=== PATIENT | male | born 1945 | race Asian ===

== ENCOUNTER 2016-12-07 14:56 | Inpatient (IN) | payer OTHER ==
[2016-12-07] MEDS ORDERED: VANCOMYCIN 1,000 MG in DEXTROSE 5%-WATER - 250 ML IVPB ONE (18:09)
[2016-12-07] MEDS ORDERED: PIPERACILLIN/TAZOB 3.375 GM/50 ML PRE-DOCKED IV ONE (18:10)
[2016-12-07] MEDS ORDERED: SODIUM CHLORIDE 1,000 ML IV STA (18:10)
--- NOTE | 2016-12-07 18:12 | PDOC ---
History of Present Illness - General Chief Complaint: Pain, Acute Stated Complaint: LT FOOT PAIN/FEVER Time Seen by Provider: 12/07/16 17:48 History Source: Patient - History of Present Illness Occurred: reports: other Severity: Yes: severe Lower Extremity Pain Location: left: 1st toe Past History - Past Medical History Allergies/Adverse Reactions: Allergies Allergy/AdvReac Type Severity Reaction Status Date / Time No Known Allergies Allergy Verified 12/07/16 15:10 Home Medications: Ambulatory Orders Allopurinol [Zyloprim -] 100 mg PO DAILY 10/26/13 Gabapentin 100 mg PO TID 10/26/13 Oxycodone HCl/Acetaminophen [Percocet 5-325 mg Tablet] 1 - 2 tab PO Q6H PRN #12 tab MDD 4 11/16/15 Prednisone 10 mg PO DAILY #40 tablet 12/10/16 Anemia: Yes Asthma: No Cancer: No Cardiac Disorders: No CVA: No COPD: No CHF: No Dementia: No Diabetes: No GI Disorders: Yes (H.PYLORI GI TRACT INFECTION,ESOPHAGITIS,DIAPHRAGMATIC HERNIA, EARLY SATIETY,) Disorders: No HTN: No Hypercholesterolemia: Yes Liver Disease: No Seizures: No Thyroid Disease: No Other medical history: GOUT - Surgical History Abdominal Surgery: No Appendectomy: No Cardiac Surgery: No Cholecystectomy: No Lung Surgery: No Neurologic Surgery: No Orthopedic Surgery: No - Suicide/Smoking/Psychosocial Hx Smoking Status: No Smoking History: Never smoked Have you smoked in the past 12 months: No Number of Cigarettes Smoked Daily: 0 Hx Alcohol Use: No Drug/Substance Use Hx: No Substance Use Type: None Hx Substance Use Treatment: No Review of Systems - Review of Systems Constitutional: Yes: Fever Musculoskeletal: Yes: Joint Pain, Joint Swelling *Physical Exam - Vital Signs Last Vital Signs Temp Pulse Resp BP Pulse Ox 103.1 F H 105 H 19 131/81 96 12/07/16 15:10 12/07/16 15:10 12/07/16 15:10 12/07/16 15:10 12/07/16 15:10 - Physical Exam General Appearance: Yes: Appropriately Dressed, Mild Distress HEENT: positive: Normal Voice Neck: positive: Supple Respiratory/Chest: negative: Respiratory Distress Extremity: positive: Other (significant swelling to L 1st MTP w/ erythema extending into foot w/ increased warmth to entire foot/leg, pedal pusles intact) Integumentary: positive: Dry, Warm Neurologic: positive: Fully Oriented, Alert, Normal Mood/Affect ED Treatment Course - LABORATORY CBC & Chemistry Diagram: 12/10/16 06:30 12/10/16 06:30 - RADIOLOGY Radiology Studies Ordered: Category Date Time Status FOOT-LEFT [RAD] Stat Radiology 12/07/16 18:11 Ordered Medical Decision Making - Medical Decision Making 12/07/16 18:12 71-year-old male history of gout mostly to left great toe, on allopurinol, here with severe pain with redness and swelling to left great toe 3 days associated with fever. Denies history of septic joint in the past. See exam Concern for septic joint vs osteo Febrile to 103 F w/ significant swelling w/ erythema of L 1st MTP joint extending into foot w/ increased warmth to entire L foot/leg -pain control -IV abx -XR -labs including esr and crp -arrange admission w/ PMD 12/07/16 18:17 12/07/16 18:18 12/07/16 18:33 Case d/w Dr Narvaez, states pt to be admitted to Dr Hamm 12/07/16 18:34 12/07/16 18:54 Signed out to JESSICA Partida a/w labs and admission *DC/Admit/Observation/Transfer Diagnosis at time of Disposition: Sepsis - Discharge Dispostion Disposition: HOME Condition at time of disposition: Improved - Prescriptions
[2016-12-07] MEDS ORDERED: morphine CARPU-JECT 2 MG/1 ML DISP.SYRIN ONE (18:39)
[2016-12-07] MEDS ORDERED: ACETAMINOPHEN 325 MG TABLET (FP) PO ONE (18:39)
[2016-12-07] MEDS ORDERED: ACETAMINOPHEN 325 MG TABLET (FP) ONE (18:39)
[2016-12-07] MEDS ORDERED: morphine CARPU-JECT 4 MG/1 ML DISP.SYRIN IVPUSH ONE (18:39)
[2016-12-07 19:17] LABS: BASOPHIL 0.9 % (0-2.0); EOSINOPHIL 0.5 % (0-4.5); MCH 29.2 pg (25.7-33.7); MCHC 33.1 g/dl (32.0-35.9); MEAN CELL VOLUME 88.2 fl (80-96); NEUTROPHILS 72.4 % (42.8-82.8); PLATELET COUNT 214 K/MM3 (134-434); RDW 13.6 % (11.9-15.9); WHITE BLOOD COUNT 9.3 K/mm3 (4.0-10.0)
--- NOTE | 2016-12-07 19:18 | PDOC ---
*Physical Exam - Vital Signs Last Vital Signs Temp Pulse Resp BP Pulse Ox 103.1 F H 105 H 19 131/81 96 12/07/16 15:10 12/07/16 15:10 12/07/16 15:10 12/07/16 15:10 12/07/16 15:10 - Physical Exam Comments: 12/07/16 19:18 Sign-out received from outgoing ER provider Yunior. Pt interviewed and examined. Briefly, patient is a 71 yo M with hx of gout, h. pylori, and esophagitis, who presents to ED with redness, pain, and swelling to L great toe. Patient VS notable for temp of 103.1 and HR 105. Patient has received Vanc, Zosyn. Ancillary studies reviewed. Awaiting labs, foot XR. 12/07/16 20:39 Laboratory Tests 12/07/16 12/07/16 12/07/16 19:01 19:01 20:20 BUN 21 H D Creatinine 2.0 H Lactic Acid 4.1 H* C-Reactive Protein 10.4 H Still awaiting Foot x-ray. Patient hypotensive to 80s/40s. -2L IVF, Clindamycin -PT/PTT/INR, VBG, T&S -Repeat lactate -EKG, CXR Still awaiting urine. CXR negative, foot x-ray positive for osteoarthritic changes but negative for osteomyelitis. Soft tissue swelling. 12/07/16 22:18 Discussed case with JESSICA Gallardo of ICU, patient will be transferred to ICU for sepsis, r/o cellulitis vs UTI over dorsal aspect of foot. ED Treatment Course - LABORATORY CBC & Chemistry Diagram: 12/07/16 19:01 12/07/16 19:01 - Medications Given in the ED: ED Medications Discontinued Medications Generic Name Dose Route Start Last Admin Trade Name Freq PRN Reason Stop Dose Admin Acetaminophen 650 mg 12/07/16 18:39 12/07/16 18:35 Tylenol - PO 12/07/16 18:40 650 mg ONCE ONE Administration Sodium Chloride 1,000 mls @ 1,000 mls/hr 12/07/16 18:10 12/07/16 18:50 Normal Saline - IV 12/07/16 19:09 1,000 mls/hr ASDIR STA Administration Morphine Sulfate 2 mg 12/07/16 18:39 12/07/16 18:45 Morphine Injection - IVPUSH 12/07/16 18:40 2 mg ONCE ONE Administration *DC/Admit/Observation/Transfer Diagnosis at time of Disposition: Sepsis Qualifiers: Sepsis type: sepsis due to unspecified organism Qualified Code(s): A41.9 - Sepsis, unspecified organism - Discharge Dispostion Admit: Yes - Referrals Referrals: Iva Hamm MD [Primary Care Provider] -
[2016-12-07] MEDS ORDERED: VANCOMYCIN 1 GRAM (PRE-DOCKED) 250 ML IVPB ONE (19:21)
[2016-12-07] MEDS ORDERED: PIPERACILLIN/TAZOB 3.375 GM 50 ML IVPB ONE (19:22)
[2016-12-07 20:31] LABS: ALBUMIN 3.4 g/dl (3.4-5.0); ALK PHOS 62 U/L (45-117); ANION GAP 8 (8-16); BILIRUBIN,TOTAL 0.9 mg/dL (0.2-1.0); CALCIUM 8.9 mg/dL (8.5-10.1); CO2 23 mmol/L (21-32); GLUCOSE,RANDOM 95 mg/dL (74-106); SGOT/AST 13 U/L (15-37); SGPT/ALT 14 U/L (12-78); TOT PROT 6.8 g/dl (6.4-8.2)
[2016-12-07] MEDS ORDERED: SODIUM CHLORIDE 0.9% 1000 ML INFUS.BAG IV ONE ×2 (20:38→20:43)
[2016-12-07] MEDS ORDERED: CLINDAMYCIN 600MG PREMIX IVPB 50 ML IVPB ONE (20:40)
[2016-12-07] MEDS ORDERED: IBUPROFEN 800 MG/8 ML IJ IVPB ONE (20:47)
[2016-12-07 21:12] LABS: VENOUS BLOOD GAS HCO3 19.1 meq/L (19-25); VENOUS PH 7.37 (7.32-7.42)
[2016-12-07] MEDS ORDERED: ACETAMINOPHEN 325 MG TABLET (FP) PO PRN ×3 (22:26→22:32)
[2016-12-07] MEDS ORDERED: oxyCODONE HCL 5 MG TABLET PO PRN ×2 (22:31→22:32)
[2016-12-07] MEDS: SODIUM CHLORIDE 1,000 ML IV SCH (23:00)
--- NOTE | 2016-12-07 23:08 | CONSULT ---
Consult Consult Specialty:: Pulm/CCM Reason for Consultation:: Sepsis; RLE foot cellulitis - History of Present Illness Chief Complaint: Fever, Chills, Lt great toe pain History of Present Illness: 71 year old man with PMHx H.Pylori gesophagitis, HLD, gout on allopurinol who present to ED with c/o fever, chills and left great toe, edema and pain x1week. In ED T103.1, HR 05-70's, BP 80/40 improved to 90/50 with 2L NS bolus. Lt great toe warm,erythemous, swollen and pain to touch. Labs notable for WBC 9.3, lact 4.1, ESR 94. CXR clear, Lt foot x-ray showed arthritic changes. Started on Vanco , Zosyn and clindamycin. Transferred to ICU for further care. In ICU T97.9, HR 88,101/63 O2sat 100% on room air. Lt great toe edematous, warm painful to touch with hardened callouses. Pt denaied N/VD, loss of appetite, dizziness, CP. Cont antibiotics. - History Source History Provided By: Family Member, Medical Record Limitations to Obtaining History: Language Barrier - Past Medical History Cardio/Vascular: Yes: Hyperlipdemia Gastrointestinal: Yes: Other (Esophagitis) Rheumatology: Yes: Gout - Alcohol/Substance Use Hx Alcohol Use: No - Smoking History Smoking history: Never smoked Have you smoked in the past 12 months: No Aproximately how many cigarettes per day: 0 Home Medications - Allergies Allergies/Adverse Reactions: Allergies Allergy/AdvReac Type Severity Reaction Status Date / Time No Known Allergies Allergy Verified 12/07/16 15:10 - Home Medications Home Medications: Ambulatory Orders Allopurinol [Zyloprim -] 100 mg PO DAILY 10/26/13 Gabapentin 100 mg PO TID 10/26/13 Oxycodone HCl/Acetaminophen [Percocet 5-325 mg Tablet] 1 - 2 tab PO Q6H PRN #12 tab MDD 4 11/16/15 Review of Systems Unable to obtain ROS, reason: Language barrier Physical Exam Vital Signs: Vital Signs Temperature 99.1 F 12/07/16 22:19 Pulse Rate 77 12/07/16 22:19 Respiratory Rate 18 12/07/16 22:19 Blood Pressure 92/56 12/07/16 22:19 O2 Sat by Pulse Oximetry (%) 100 12/07/16 22:19 Constitutional: Yes: Well Nourished, No Distress, Calm Eyes: Yes: Conjunctiva Clear, PERRL HENT: Yes: Normocephalic Neck: Yes: Supple, Trachea Midline Cardiovascular: Yes: Regular Rate and Rhythm, S1, S2 Respiratory: Yes: Regular, CTA Bilaterally Gastrointestinal: Yes: Normal Bowel Sounds, Soft ...Rectal Exam: Yes: Deferred Renal/: Yes: Other (Voiding) Musculoskeletal: Yes: Joint Swelling (Lt great toe swollen, warm; bursa callous , callouses on both feet) Extremities: Yes: Erythema Edema: No Peripheral Pulses WNL: Yes Neurological: Yes: Alert, Oriented ...Motor Strength: WNL Psychiatric: Yes: WNL Labs: CBC,CMP WBC 9.3 K/mm3 (4.0-10.0) 12/07/16 19:01 RBC 4.22 M/mm3 (4.00-5.60) 12/07/16 19:01 Hgb 12.3 GM/dL (11.7-16.9) D 12/07/16 19:01 Hct 37.2 % (35.4-49) D 12/07/16 19:01 MCV 88.2 fl (80-96) 12/07/16 19:01 MCH 29.2 pg (25.7-33.7) 12/07/16 19:01 MCHC 33.1 g/dl (32.0-35.9) 12/07/16 19: RDW 13.6 % (11.9-15.9) 12/07/16 19:01 Plt Count 214 K/MM3 (134-434) 12/07/16 19:01 MPV 7.0 fl (7.5-11.1) L 12/07/16 19:01 Neutrophils % 72.4 % (42.8-82.8) 12/07/16 19:01 Lymphocytes % 12.2 % (8-40) D 12/07/16 19:01 Monocytes % 14.0 % (3.8-10.2) H 12/07/16 19:01 Eosinophils % 0.5 % (0-4.5) D 12/07/16 19: Basophils % 0.9 % (0-2.0) 12/07/16 19: ESR 94 mm/hr (0-20) H 12/07/16 20:20 Sodium 138 mmol/L (136-145) 12/07/16 19:01 Potassium 5.1 mmol/L (3.5-5.1) 12/07/16 19:01 Chloride 107 mmol/L (98-107) 12/07/16 19:01 Carbon Dioxide 23 mmol/L (21-32) D 12/07/16 19:01 Anion Gap 8 (8-16) 12/07/16 19:01 BUN 21 mg/dL (7-18) H D 12/07/16 19:01 Creatinine 2.0 mg/dL (0.7-1.3) H 12/07/16 19:01 Creat Clearance w eGFR 33.10 (>60) 12/07/16 19:01 Random Glucose 95 mg/dL (74-106) D 12/07/16 19:01 Lactic Acid 1.7 mmol/L (0.4-2.0) 12/07/16 22:00 Uric Acid 6.2 mg/dL (2.6-7.2) D 12/07/16 19:01 Calcium 8.9 mg/dL (8.5-10.1) 12/07/16 19:01 Total Bilirubin 0.9 mg/dL (0.2-1.0) D 12/07/16 19:01 AST 13 U/L (15-37) L D 12/07/16 19:01 ALT 14 U/L (12-78) D 12/07/16 19:01 Alkaline Phosphatase 62 U/L (45-117) 12/07/16 19:01 C-Reactive Protein 10.4 MG/DL (0.00-0.3) H 12/07/16 20:20 Total Protein 6.8 g/dl (6.4-8.2) 12/07/16 19:01 Albumin 3.4 g/dl (3.4-5.0) 12/07/16 19:01 Active Medications Acetaminophen (Tylenol -) 650 mg PO Q6H PRN PRN Reason: FEVER Acetaminophen (Tylenol -) 325 mg PO Q6H PRN PRN Reason: PAIN LEVEL 1-5 Acetaminophen (Tylenol -) 650 mg PO Q6H PRN PRN Reason: PAIN LEVEL 6-10 Sodium Chloride (Normal Saline -) 1,000 mls @ 83 mls/hr IV ASDIR ANAIS Piperacillin Sod/Tazobactam (Sod 2.25 gm/ Dextrose) 50 mls @ 100 mls/hr IVPB Q8H-IV ANAIS PRN Reason: Protocol Piperacillin Sod/Tazobactam (Sod 2.25 gm/ Dextrose) 50 mls @ 100 mls/hr IVPB Q8H-IV ANAIS PRN Reason: Protocol Stop: 12/08/16 10:29 Oxycodone HCl (Roxicodone -) 5 mg PO Q6H PRN PRN Reason: PAIN LEVEL 1-5 Oxycodone HCl (Roxicodone -) 10 mg PO Q6H PRN PRN Reason: PAIN LEVEL 6-10 Vital Signs Period Temp Pulse Resp BP Sys/Mcgarry Pulse Ox Last 24 Hr 99.1 F-103.1 F 72-105 18-22 82-131/43-81 96-100 Imaging - Results Chest X-ray: Report Reviewed (Clear) X-ray: Report Reviewed Problem List - Problems (1) Sepsis Code(s): A41.9 - SEPSIS, UNSPECIFIED ORGANISM Qualifiers: Sepsis type: sepsis due to unspecified organism Qualified Code(s): A41.9 - Sepsis, unspecified organism (2) Left foot pain Code(s): M79.672 - PAIN IN LEFT FOOT (3) Cellulitis Code(s): L03.90 - CELLULITIS, UNSPECIFIED Assessment/Plan 71 year old man with PMHx H.Pylori esophagogastritis, HLD, gout on allopurinol who present to ED with c/o fever, chills and left great toe, edema and pain x1week admitted to ICU with sepsis m/l 2/2 lt foot cellulitis. Hemodynamically stable after fluid bolus. Plan: -Fluid bolus as needed for MAP>60 -ID consult -Ortho consult -Cont Vanco, Zosyn -Trend lactate -Strict I+O's -Monitor BMP; creat -Pain management -DVT proph
[2016-12-07 23:41] LABS: INR 1.39 (0.82-1.09); PROTHROMBIN TIME (PATIENT) 15.4 SEC (9.98-11.88)
[2016-12-07 23:44] LABS: ACTIVATED PTT 33.5 SECONDS (26.9-34.4)
[2016-12-08 00:40] VITALS: BMI 26.1
[2016-12-08] MEDS ORDERED: PIPERACILLIN/TAZOB 2.25 GM 2.25 GM in DEXTROSE 5%-WATER - 50 ML IVPB SCH ×2 (02:00→18:00)
[2016-12-08] MEDS ORDERED: PIPERACILLIN/TAZOB 2.25 GM/50 ML PRE-DOCKED BAG IVPB SCH ×2 (04:00)
[2016-12-08 06:03] LABS: BASOPHIL 0.6 % (0-2.0); MCHC 33.9 g/dl (32.0-35.9); MEAN CELL VOLUME 88.5 fl (80-96); MEAN PLT VOLUME 7.3 fl (7.5-11.1); NEUTROPHILS 61.1 % (42.8-82.8); PLATELET COUNT 196 K/MM3 (134-434); RDW 13.6 % (11.9-15.9); WHITE BLOOD COUNT 6.9 K/mm3 (4.0-10.0)
[2016-12-08 06:32] LABS: ALBUMIN 2.7 g/dl (3.4-5.0); ANION GAP 7 (8-16); CALCIUM 7.8 mg/dL (8.5-10.1); CO2 23 mmol/L (21-32); CREATININE 1.9 mg/dL (0.7-1.3); GLUCOSE,RANDOM 86 mg/dL (74-106); SGOT/AST 12 U/L (15-37); SGPT/ALT 10 U/L (12-78)
[2016-12-08 06:33] LABS: ALK PHOS 53 U/L (45-117); BILIRUBIN,TOTAL 0.9 mg/dL (0.2-1.0); TOT PROT 5.5 g/dl (6.4-8.2)
--- NOTE | 2016-12-08 07:38 | PN ---
Physical Exam: 24H Events yesterday: admitted from ED with sepsis (Tmax 103.1, hypotensive, L with c/o fever, chills and edema/pain in left great toe x1week O/N: 2L NS fluid bolus, maintain AM: sinus tachycardia, low voltage EKG SUBJECTIVE: Patient seen and examined in ICU. Family member at bedside translating for patient. Complaint of L foot pain, no n/v, SOB or chest pain. OBJECTIVE: Vital Signs Period Temp Pulse Resp BP Sys/Mcgarry Pulse Ox Last 24 Hr 98.6 F-98.8 F 71-119 20-20 99-112/59-67 Intake & Output 12/05/16 12/06/16 12/07/16 12/08/16 23:59 23:59 23:59 23:59 Intake Total 1100 880 Output Total 300 200 Balance 800 680 Weight 78 kg Gen: awake, alert, oriented, NAD Heart: tachycardic, regular rhythm, no murmur or gallop Lung: CTAB, no wheezes, rhonchi, or rales Abd: soft, ntnd Ext: Left foot dorsum ttp, tophi medial aspect of L great toe and medial calcaneous CBC, BMP 12/08/16 05:00 12/08/16 05:00 Hepatic Panel Total Bilirubin 0.9 mg/dL (0.2-1.0) 12/08/16 05:00 AST 12 U/L (15-37) L 12/08/16 05:00 ALT 10 U/L (12-78) L D 12/08/16 05:00 Alkaline Phosphatase 53 U/L (45-117) 12/08/16 05:00 Albumin 2.7 g/dl (3.4-5.0) L D 12/08/16 05:00 Laboratory Tests 12/07/16 12/07/16 19:01 22:00 Lactic Acid 4.1 H* 1.7 IMAGING: Left Foot XRAY 12/08/2016: Impression: No significant interval change or acute lung disease is present X- ray of the left foot, 3 views. The alignment is satisfactory. There are mild osteoarthritic changes involving the first metatarsal phalangeal joint. There are also osteoarthritic changes involving the second and third tarsometatarsal joints. No acute fracture or dislocation are identified. There is mild soft tissue swelling over dorsal aspect of the foot. Note is made of a tiny plantar calcaneal spur. Active Medications Acetaminophen (Tylenol -) 650 mg PO Q6H PRN PRN Reason: FEVER Acetaminophen (Tylenol -) 325 mg PO Q6H PRN PRN Reason: PAIN LEVEL 1-5 Last Admin: 12/08/16 09:27 Dose: 325 mg Acetaminophen (Tylenol -) 650 mg PO Q6H PRN PRN Reason: PAIN LEVEL 6-10 Heparin Sodium (Porcine) (Heparin -) 5,000 unit SQ BID [facility] Last Admin: 12/08/16 12:01 Dose: 5,000 unit Sodium Chloride (Normal Saline -) 1,000 mls @ 83 mls/hr IV ASDIR [facility] Last Admin: 12/07/16 23:00 Dose: 83 mls/hr Methylprednisolone Sodium Succinate (Solu-Medrol -) 40 mg IVPB Q6H-IV [facility] Last Admin: 12/08/16 13:59 Dose: 40 mg Oxycodone HCl (Roxicodone -) 5 mg PO Q6H PRN PRN Reason: PAIN LEVEL 1-5 Last Admin: 12/08/16 09:25 Dose: 5 mg Oxycodone HCl (Roxicodone -) 10 mg PO Q6H PRN PRN Reason: PAIN LEVEL 6-10 Pantoprazole Sodium (Protonix -) 40 mg PO DAILY [facility] Last Admin: 12/08/16 10:34 Dose: 40 mg Piperacillin Sod/Tazobactam Sod (Zosyn 3.375gm Ivpb (Pre-Docked)) 3.375 gm IVPB Q8H-IV ANAIS PRN Reason: Protocol Last Admin: 12/08/16 11:55 Dose: 3.375 gm ASSESSMENT/PLAN: 71yo man with PMH of gastritis (H pylori), HLD, gout who presents with severe sepsis (Tmax 103, hypotension, Lactate 4) likely 2/2 L foot cellulitis. He received 2L IVF boluses, and has been in intermittent sinus tachycardia. #ID A: L foot cellulitis, lactic acidosis resolved -ID consulted -Abx per ID (vanc and zosyn) -f/u cultures -Acetaminophen prn for pain or fever #Renal A: acute on CKD -continue home allopurinol -El present, strict I&Os #CV -Fluid bolus to maintain MAP>60 -ECHO pending -Cardiology consulted -Trend troponin, CK-MP #MSK -continue home allopurinol for gout -Ortho consult #Neuro -Oxycodone for pain #FEN -NS @ 42cc/hr -lytes wnl -Regular diet as tolerated #PPX -DVT - Heparin 5000U sq BID -GI - protonix 40mg PO daily #Dispo: monitor on floors FULL CODE d/w Dr. Mat Sharp MD PGY-1 Visit type - Emergency Visit Emergency Visit: No - New Patient This patient is new to me today: Yes Date on this admission: 12/08/16 - Critical Care Critical Care patient: Yes Total Critical Care Time (in minutes): 35 Critical Care Statement: The care of this patient involved high complexity decision making to prevent further life threatening deterioration of the patient 's condition and/or to evaluate & treat vital organ system(s) failure or risk of failure.
--- NOTE | 2016-12-08 09:13 | HP ---
Admitting History and Physical - Primary Care Physician PCP: Iva Hamm - Admission Chief Complaint: hypotension, left foot pain History of Present Illness: Pt admitted in ICU for sepsis, hypotension, left foot pain . Has been having left foot pain for a few days, unable to walk well do to pain, had high grade fever and came to ER. Has h/o gout History Source: Patient Limitations to Obtaining History: No Limitations - Past Medical History Cardiovascular: Yes: Hyperlipdemia Gastrointestinal: Yes: Other (Esophagitis) Rheumatology: Yes: Gout - Smoking History Smoking history: Never smoked Have you smoked in the past 12 months: No Aproximately how many cigarettes per day: 0 - Alcohol/Substance Use Hx Alcohol Use: No Home Medications - Allergies Allergies/Adverse Reactions: Allergies Allergy/AdvReac Type Severity Reaction Status Date / Time No Known Allergies Allergy Verified 12/07/16 15:10 - Home Medications Home Medications: Ambulatory Orders Allopurinol [Zyloprim -] 100 mg PO DAILY 10/26/13 Gabapentin 100 mg PO TID 10/26/13 Oxycodone HCl/Acetaminophen [Percocet 5-325 mg Tablet] 1 - 2 tab PO Q6H PRN #12 tab MDD 4 11/16/15 Review of Systems - Review of Systems Constitutional: reports: Chills, Fever Musculoskeletal: reports: Joint Pain Physical Examination Vital Signs: Vital Signs Temperature 98.8 F 12/08/16 06:00 Pulse Rate 75 12/08/16 06:00 Respiratory Rate 20 12/08/16 06:00 Blood Pressure 112/59 12/08/16 06:00 O2 Sat by Pulse Oximetry (%) 96 12/07/16 22:26 Constitutional: Yes: Anxious Cardiovascular: Yes: Regular Rate and Rhythm Respiratory: Yes: CTA Bilaterally Gastrointestinal: Yes: Normal Bowel Sounds, Soft. No: Distention, Tenderness Extremities: Yes: Other (left big toe edema+, warm foot and tender , tophi+) Edema: Yes (left foot edema) Psychiatric: Yes: Alert, Oriented Labs: CBC, BMP 12/08/16 05:00 12/08/16 05:00 Imaging - Results Chest X-ray: Image Reviewed (clear) X-ray: Report Reviewed EKG: Image Reviewed (NSR) Assessment/Plan A/P Sepsis Possible septic arthritis Gout -- on iv antibiotics -- short course of steroids -- iv fluids -- pain control -- ID and Rheumatology eval -- BP better after fluids cultures pending unlikely osteomyelitis -- DVT prophylaxis-- Heparin sc
--- NOTE | 2016-12-08 10:23 | EKG ---
Test Reason : Blood Pressure : / mmHG Vent. Rate : 077 BPM Atrial Rate : 077 BPM P-R Int : 164 ms QRS Dur : 090 ms QT Int : 392 ms P-R-T Axes : 035 001 030 degrees QTc Int : 443 ms NORMAL SINUS RHYTHM LOW VOLTAGE QRS IN LIMB LEADS BORDERLINE ECG WHEN COMPARED WITH ECG OF 26-OCT-2013 13:02, QRS VOLTAGE HAS DECREASED QT HAS LENGTHENED CLINICAL CORRELATION IS RECOMMENDED Confirmed by ITALIA CERVANTES MD ([id number]) on 12/08/2016 10:23:21 AM Referred By: Confirmed By:ITALIA CERVANTES MD
[2016-12-08] MEDS: PANTOPRAZOLE 40 MG TABLET (FP) PO SCH (10:34)
[2016-12-08] MEDS: methylPREDNISolone NA SUCC 40 MG/1 ML VIAL IVPB SCH ×4 (10:34→17:20)
--- NOTE | 2016-12-08 10:52 | PN ---
Progress Note (short form) - Note Progress Note: ID consult dictated 71 year old man brought to ED yesterday with one week history of fever and chills and worsening left foot pain has been taking aleve at home had fever to 103 and hypotension in ED with lactic acid of 4 has not been eating for the last several days no vomiting no chest pain no cough no dysuria or diarrhea returned from [place] in the spring- has been in [place] since then history of gout sepsis cellulitis of the left foot gout LAURA continue vancomycin and zosyn adjusted for LAURA f/u cultures surgical evaluation of the foot follow vancomycin trough for dosing Problem List - Problems (1) Sepsis Code(s): A41.9 - SEPSIS, UNSPECIFIED ORGANISM Qualifiers: Sepsis type: sepsis due to unspecified organism Qualified Code(s): A41.9 - Sepsis, unspecified organism (2) Cellulitis Code(s): L03.90 - CELLULITIS, UNSPECIFIED (3) Gout Code(s): M10.9 - GOUT, UNSPECIFIED (4) LAURA (acute kidney injury) Code(s): N17.9 - ACUTE KIDNEY FAILURE, UNSPECIFIED
[2016-12-08] MEDS: PIPERACILLIN/TAZOB 3.375 GM/50 ML PRE-DOCKED IVPB SCH ×2 (11:55→17:21)
[2016-12-08] MEDS: HEPARIN NA (PORCINE) 5,000 UNITS/ML 1ML VIAL SQ SCH (12:01)
--- NOTE | 2016-12-08 12:32 | PN ---
Teaching Attending Note Name of Resident: Ami Sharp ATTENDING PHYSICIAN STATEMENT I saw and evaluated the patient. I reviewed the resident's note and discussed the case with the resident. I agree with the resident's findings and plan as documented. SUBJECTIVE: Pt seen and examined in the ICU. Blood pressure improved with IVF resuscitation. Fever curve trending down. Foot pain and swelling improving. OBJECTIVE: Last Vital Signs Temp Pulse Resp BP Pulse Ox 99.2 F 120 H 18 137/66 96 12/08/16 08:00 12/08/16 10:00 12/08/16 10:00 12/08/16 10:00 12/08/16 09:00 Intake & Output 12/05/16 12/06/16 12/07/16 12/08/16 23:59 23:59 23:59 23:59 Intake Total 1100 880 Output Total 300 200 Balance 800 680 Weight 171 lb 15.369 oz Gen: NAD at rest Heart: tachycardic, regular Lung: decreased breath sounds at the bases Abd: soft, nontender Ext: left foot edema CBC, BMP 12/08/16 05:00 12/08/16 05:00 Active Medications Acetaminophen (Tylenol -) 650 mg PO Q6H PRN PRN Reason: FEVER Acetaminophen (Tylenol -) 325 mg PO Q6H PRN PRN Reason: PAIN LEVEL 1-5 Last Admin: 12/08/16 09:27 Dose: 325 mg Acetaminophen (Tylenol -) 650 mg PO Q6H PRN PRN Reason: PAIN LEVEL 6-10 Heparin Sodium (Porcine) (Heparin -) 5,000 unit SQ BID [facility] Last Admin: 12/08/16 12:01 Dose: 5,000 unit Sodium Chloride (Normal Saline -) 1,000 mls @ 83 mls/hr IV ASDIR [facility] Last Admin: 12/07/16 23:00 Dose: 83 mls/hr Methylprednisolone Sodium Succinate (Solu-Medrol -) 40 mg IVPB Q6H-IV [facility] Last Admin: 12/08/16 10:34 Dose: 40 mg Oxycodone HCl (Roxicodone -) 5 mg PO Q6H PRN PRN Reason: PAIN LEVEL 1-5 Last Admin: 12/08/16 09:25 Dose: 5 mg Oxycodone HCl (Roxicodone -) 10 mg PO Q6H PRN PRN Reason: PAIN LEVEL 6-10 Pantoprazole Sodium (Protonix -) 40 mg PO DAILY [facility]NA[facility] Last Admin: 12/08/16 10:34 Dose: 40 mg Piperacillin Sod/Tazobactam Sod (Zosyn 3.375gm Ivpb (Pre-Docked)) 3.375 gm IVPB Q8H-IV ANAIS PRN Reason: Protocol Last Admin: 12/08/16 11:55 Dose: 3.375 gm ASSESSMENT AND PLAN: Left Foot Cellulitis Severe Sepsis Lactic Acidosis resolved Acute on Chronic Renal Failure Gout h/o Gastritits - antibiotics per ID - f/u cultures - IVF - monitor urine output, creatinine - echocardiogram as low voltage seen on EKG - rapid taper off steroids - pain control - PO as tolerated - DVT prophylaxis - can monitor on floor
--- NOTE | 2016-12-08 13:15 | EKG ---
Test Reason : Blood Pressure : / mmHG Vent. Rate : 094 BPM Atrial Rate : 094 BPM P-R Int : 158 ms QRS Dur : 088 ms QT Int : 328 ms P-R-T Axes : 028 002 034 degrees QTc Int : 410 ms NORMAL SINUS RHYTHM LOW VOLTAGE QRS BORDERLINE ECG WHEN COMPARED WITH ECG OF 07-DEC-2016 21:53, NO SIGNIFICANT CHANGE WAS FOUND BASELINE ARTIFACTS. Confirmed by ITALIA CERVANTES MD ([id number]) on 12/08/2016 1:15:15 PM Referred By: Confirmed By:ITALIA CERVANTES MD
--- NOTE | 2016-12-08 15:33 | CONS ---
INFECTIOUS DISEASE CONSULTATION DATE OF CONSULTATION: DATE OF DICTATION: 12/08/2016 HISTORY OF PRESENT ILLNESS: This is a 71-year-old man with past medical history of gastroesophagitis and gout, who was brought to the emergency room by his son with fevers and chills for 1 week. He has had progressive pain and swelling of his left leg. Family thought he had a gout attack, but he did have accompanying fevers and chills which have persisted for a week. He has been taking Aleve at home. He denies any nausea, vomiting, diarrhea, or dysuria. He has chronic hiccups and GERD. He denies any vomiting. He has had no chest pain. He has no headache. He has no difficulty swallowing. He has no diarrhea or dysuria. On arrival to the emergency room, he had a blood pressure of 80/40 which improved with normal saline bolus. Per the son, his appetite has been poor and he has not been eating for the last 3 days. His fever was 103 as well. He was noted to have a swollen left foot as well as left great toe, and he was admitted to the ICU for sepsis. His lactic acid was 4. He was started on vancomycin and Zosyn and reports some improvement of his symptoms. This morning, his blood pressure is normal, and he is resting more comfortably. He notes he still has fever and chills. PAST MEDICAL HISTORY: Notable for hyperlipidemia. His son reports he has GERD and hiccups. He has a history of esophagitis and gout. PAST SURGICAL HISTORY: He has never had any surgery. ALLERGIES: He has no known drug allergies. MEDICATIONS: He takes allopurinol and gabapentin as an outpatient. SOCIAL HISTORY: He lives with his son. He is originally from [facility]. He has been in this country for 5 years. There is no history of cigarette use. His last travel to [place] was 4 months ago. He returned in the spring and has been here all summer. No other travel. No sick contacts. REVIEW OF SYSTEMS: As per HPI. PHYSICAL EXAMINATION: Vital Signs: Current temperature is 99.2. T-max is 103.1. Pulse of 80, blood pressure of 126/65, respiratory rate is 20. He is saturating 96% on room air. HEENT: He is normocephalic. His eyes are anicteric. He has no thrush. Neck: Supple. Lungs: Clear to auscultation. Heart: Regular rate and rhythm. Abdomen: Soft, nontender. Extremities: Notable for good pulses in both his feet. His left foot is diffusely swollen with notable swelling of the big toe. He has calluses of his big toe and a callus on his heel. DIAGNOSTIC DATA: White count is 6.9, hemoglobin is 11, platelets are 196. Sedimentation rate is 94. BUN and creatinine are elevated. Chest x-ray is negative for infiltrate. X-ray of the foot is notable for soft tissue swelling. In summary, this is a 71-year-old man admitted with sepsis, cellulitis of his foot, probable gout, acute kidney injury. He was started on vancomycin and Zosyn, received a dose of clindamycin as well in the ER. Would continue his vancomycin based on levels. Given the fact he has a soft tissue infection with sepsis, methicillin-resistant Staphylococcus aureus needs to be empirically treated for until cultures are back. Would continue broad-spectrum coverage with piperacillin/tazobactam as well. We will adjust his antibiotics for his renal insufficiency. Will obtain a vancomycin level and dose his vancomycin per level. He is receiving IV fluids. Acute kidney injury may be a combination of the Aleve he has been taking as well as dehydration and his febrile illness. Gout. He is on allopurinol. Surgical consult has been called as well to evaluate his foot. Further recommendations to follow based on his clinical course. YELITZA LESTER M.D. [id number]
[2016-12-08] MEDS ORDERED: PT OWN MED DRAWER 7, Y5N ONE (17:47)
[2016-12-08] MEDS ORDERED: VANCOMYCIN 1 GRAM (PRE-DOCKED) 1,000 MG/250 ML BAG IVPB ONE (18:00)
[2016-12-09 00:39] LABS: CPK 40 IU/L (39-308)
[2016-12-09 00:40] LABS: TROPONIN I < 0.02 ng/ml (0.00-0.05)
[2016-12-09] MEDS: SODIUM CHLORIDE 1,000 ML IV SCH (01:52)
[2016-12-09] MEDS: methylPREDNISolone NA SUCC 40 MG/1 ML VIAL IVPB SCH ×3 (01:53→21:23)
[2016-12-09] MEDS: PIPERACILLIN/TAZOB 3.375 GM/50 ML PRE-DOCKED IVPB SCH ×2 (01:53→09:02)
[2016-12-09 06:26] LABS: BASOPHIL 0.3 % (0-2.0); MCH 29.8 pg (25.7-33.7); MCHC 34.1 g/dl (32.0-35.9); MEAN CELL VOLUME 87.4 fl (80-96); MEAN PLT VOLUME 7.7 fl (7.5-11.1); NEUTROPHILS 90.7 % (42.8-82.8); PLATELET COUNT 213 K/MM3 (134-434); RDW 13.6 % (11.9-15.9); WHITE BLOOD COUNT 8.8 K/mm3 (4.0-10.0)
[2016-12-09 06:54] LABS: ALBUMIN 2.6 g/dl (3.4-5.0); ANION GAP 10 (8-16); CALCIUM 8.1 mg/dL (8.5-10.1); CO2 18 mmol/L (21-32); GLUCOSE,RANDOM 144 mg/dL (74-106)
[2016-12-09 07:00] LABS: ALK PHOS 52 U/L (45-117); BILIRUBIN,TOTAL 0.6 mg/dL (0.2-1.0); CREATININE 1.6 mg/dL (0.7-1.3); SGOT/AST 13 U/L (15-37); SGPT/ALT 11 U/L (12-78); TOT PROT 5.8 g/dl (6.4-8.2)
--- NOTE | 2016-12-09 08:26 | PN ---
Physical Exam: 24H Events: yesterday: sinus tachycardia, low voltage EKG --> ECHO completed, no pericardial effusion, LVEF 64% ON: no events AM: NGTD x24h in blood cultures SUBJECTIVE: Patient seen and examined in ICU. Feeling better. LLE foot pain improved. Denies fever, chills, chest pain, and SOB. C/o of hiccups. OBJECTIVE: Vital Signs Period Temp Pulse Resp BP Sys/Mcgarry Pulse Ox Last 24 Hr 98.2 F-98.9 F 70-152 18-20 105-137/64-80 95-96 Intake & Output 12/06/16 12/07/16 12/08/16 12/09/16 23:59 23:59 23:59 23:59 Intake Total 1100 2776 996 Output Total 300 2000 Balance 800 776 996 Weight 78 kg Gen: awake, alert, oriented, NAD Heart: regular rate andrhythm, no murmur or gallop Lung: CTAB, no wheezes, rhonchi, or rales Abd: soft, ntnd Ext: Left foot dorsum mildly ttp, tophi medial aspect of L great toe and medial calcaneus CBC, BMP 12/09/16 05:10 12/09/16 05:10 Ca - 8.1 (corrected 9.2) Hepatic Panel Total Bilirubin 0.6 mg/dL (0.2-1.0) D 12/09/16 05:10 AST 13 U/L (15-37) L 12/09/16 05:10 ALT 11 U/L (12-78) L 12/09/16 05:10 Alkaline Phosphatase 52 U/L (45-117) 12/09/16 05:10 Albumin 2.6 g/dl (3.4-5.0) L 12/09/16 05:10 Microbiology 12/07/16 13:00 Blood - Peripheral Venous Blood Culture - Preliminary NO GROWTH OBTAINED AFTER 24 HOURS, INCUBATION TO CONTINUE FOR 4 DAYS. 12/07/16 19:00 Blood - Peripheral Venous Blood Culture - Preliminary NO GROWTH OBTAINED AFTER 24 HOURS, INCUBATION TO CONTINUE FOR 4 DAYS. Active Medications Acetaminophen (Tylenol -) 650 mg PO Q6H PRN PRN Reason: FEVER Acetaminophen (Tylenol -) 325 mg PO Q6H PRN PRN Reason: PAIN LEVEL 1-5 Last Admin: 12/08/16 09:27 Dose: 325 mg Acetaminophen (Tylenol -) 650 mg PO Q6H PRN PRN Reason: PAIN LEVEL 6-10 Heparin Sodium (Porcine) (Heparin -) 5,000 unit SQ BID [facility] Last Admin: 12/09/16 00:00 Dose: 5,000 unit Sodium Chloride (Normal Saline -) 1,000 mls @ 83 mls/hr IV ASDIR [facility] Last Admin: 12/09/16 01:52 Dose: 83 mls/hr Methylprednisolone Sodium Succinate (Solu-Medrol -) 40 mg IVPB Q8H-IV [facility] Last Admin: 12/09/16 01:53 Dose: 40 mg Oxycodone HCl (Roxicodone -) 5 mg PO Q6H PRN PRN Reason: PAIN LEVEL 1-5 Last Admin: 12/08/16 09:25 Dose: 5 mg Oxycodone HCl (Roxicodone -) 10 mg PO Q6H PRN PRN Reason: PAIN LEVEL 6-10 Pantoprazole Sodium (Protonix -) 40 mg PO DAILY [facility] Last Admin: 12/08/16 10:34 Dose: 40 mg Piperacillin Sod/Tazobactam Sod (Zosyn 3.375gm Ivpb (Pre-Docked)) 3.375 gm IVPB Q8H-IV [facility] PRN Reason: Protocol Last Admin: 12/09/16 01:53 Dose: 3.375 gm ASSESSMENT/PLAN: 71yo man with PMH of gastritis (H pylori), HLD, gout who presented with severe sepsis likely 2/2 L foot cellulitis, which is now resolving. Lactic acidosis resolved. #ID -ID consulted -Abx per ID (vanc and zosyn) -f/u cultures - NGTD x 24h -Acetaminophen prn for pain or fever #CV -Fluid bolus to maintain MAP>60 #MSK -continue home allopurinol for gout -Rheum consulted #Neuro -Oxycodone for pain #FEN -NS @ 83cc/hr -lytes wnl -Regular diet as tolerated #PPX -DVT - Heparin 5000U sq BID -GI - protonix 40mg PO daily #Dispo: monitor on floors FULL CODE d/w Dr. Mat Sharp MD PGY-1 Visit type - Emergency Visit Emergency Visit: No - New Patient This patient is new to me today: No - Critical Care Critical Care patient: Yes Total Critical Care Time (in minutes): 35 Critical Care Statement: The care of this patient involved high complexity decision making to prevent further life threatening deterioration of the patient 's condition and/or to evaluate & treat vital organ system(s) failure or risk of failure.
[2016-12-09] MEDS: HEPARIN NA (PORCINE) 5,000 UNITS/ML 1ML VIAL SQ SCH ×3 (09:02→21:28)
[2016-12-09] MEDS: PANTOPRAZOLE 40 MG TABLET (FP) PO SCH (09:03)
--- NOTE | 2016-12-09 10:38 | PN ---
Progress Note, Physician Chief Complaint: feels better decreased pain and swelling of left foot - Current Medication List Current Medications: Active Medications Acetaminophen (Tylenol -) 650 mg PO Q6H PRN PRN Reason: FEVER Acetaminophen (Tylenol -) 325 mg PO Q6H PRN PRN Reason: PAIN LEVEL 1-5 Last Admin: 12/08/16 09:27 Dose: 325 mg Acetaminophen (Tylenol -) 650 mg PO Q6H PRN PRN Reason: PAIN LEVEL 6-10 Heparin Sodium (Porcine) (Heparin -) 5,000 unit SQ BID [facility] Last Admin: 12/09/16 09:02 Dose: 5,000 unit Sodium Chloride (Normal Saline -) 1,000 mls @ 83 mls/hr IV ASDIR [facility] Last Admin: 12/09/16 01:52 Dose: 83 mls/hr Methylprednisolone Sodium Succinate (Solu-Medrol -) 40 mg IVPB Q8H-IV [facility] Last Admin: 12/09/16 09:03 Dose: 40 mg Oxycodone HCl (Roxicodone -) 5 mg PO Q6H PRN PRN Reason: PAIN LEVEL 1-5 Last Admin: 12/08/16 09:25 Dose: 5 mg Oxycodone HCl (Roxicodone -) 10 mg PO Q6H PRN PRN Reason: PAIN LEVEL 6-10 Pantoprazole Sodium (Protonix -) 40 mg PO DAILY [facility] Last Admin: 12/09/16 09:03 Dose: 40 mg Piperacillin Sod/Tazobactam Sod (Zosyn 3.375gm Ivpb (Pre-Docked)) 3.375 gm IVPB Q8H-IV [facility] PRN Reason: Protocol Last Admin: 12/09/16 09:02 Dose: 3.375 gm - Objective Vital Signs: Vital Signs Temperature 98.4 F 12/09/16 06:00 Pulse Rate 86 12/09/16 08:00 Respiratory Rate 20 12/09/16 09:00 Blood Pressure 133/75 12/09/16 08:00 O2 Sat by Pulse Oximetry (%) 95 12/09/16 09:00 Constitutional: Yes: No Distress Cardiovascular: Yes: Regular Rate and Rhythm Respiratory: Yes: CTA Bilaterally Gastrointestinal: Yes: Normal Bowel Sounds, Soft. No: Distention, Tenderness Extremities: Yes: Other (left foot -- edema+, decreased tenderness, decreased warmth) Edema: Yes Psychiatric: Yes: Alert, Oriented Labs: CBC, BMP 12/09/16 05:10 12/09/16 05:10 INR, PTT INR 1.39 (0.82-1.09) H D 12/07/16 22:00 Problem List - Problems (1) LAURA (acute kidney injury) Code(s): N17.9 - ACUTE KIDNEY FAILURE, UNSPECIFIED (2) Cellulitis Code(s): L03.90 - CELLULITIS, UNSPECIFIED (3) Gout Code(s): M10.9 - GOUT, UNSPECIFIED (4) Left foot pain Code(s): M79.672 - PAIN IN LEFT FOOT (5) Sepsis Code(s): A41.9 - SEPSIS, UNSPECIFIED ORGANISM Qualifiers: Sepsis type: sepsis due to unspecified organism Qualified Code(s): A41.9 - Sepsis, unspecified organism Assessment/Plan A/P Sepsis cellulitis Gout -- on iv antibiotics -- short course of steroids -- iv fluids-- dc -- pain control -- BP better after fluids cultures negative Echo noted spoke with daughter -- DVT prophylaxis-- Heparin sc
--- NOTE | 2016-12-09 13:23 | PN ---
Teaching Attending Note Name of Resident: Ami Sharp ATTENDING PHYSICIAN STATEMENT I saw and evaluated the patient. I reviewed the resident's note and discussed the case with the resident. I agree with the resident's findings and plan as documented. SUBJECTIVE: Pt seen and examined in the ICU. Continues to improve. No further fevers. Reports some hiccups. No shortness of breath or chest pain. OBJECTIVE: Last Vital Signs Temp Pulse Resp BP Pulse Ox 98.2 F 97 H 20 128/82 95 12/09/16 10:00 12/09/16 12:00 12/09/16 12:00 12/09/16 12:00 12/09/16 09:00 Intake & Output 12/06/16 12/07/16 12/08/16 12/09/16 23:59 23:59 23:59 23:59 Intake Total 1100 2776 996 Output Total 300 2000 Balance 800 776 996 Weight 171 lb 15.369 oz Gen: NAD at rest Heart: RRR Lung: decreased breath sounds at the bases Abd: soft, nontender Ext: no edema CBC, BMP 12/09/16 05:10 12/09/16 05:10 Active Medications Acetaminophen (Tylenol -) 650 mg PO Q6H PRN PRN Reason: FEVER Acetaminophen (Tylenol -) 325 mg PO Q6H PRN PRN Reason: PAIN LEVEL 1-5 Last Admin: 12/08/16 09:27 Dose: 325 mg Acetaminophen (Tylenol -) 650 mg PO Q6H PRN PRN Reason: PAIN LEVEL 6-10 Heparin Sodium (Porcine) (Heparin -) 5,000 unit SQ BID [facility] Last Admin: 12/09/16 09:02 Dose: 5,000 unit Sodium Chloride (Normal Saline -) 1,000 mls @ 83 mls/hr IV ASDIR [facility] Last Admin: 12/09/16 01:52 Dose: 83 mls/hr Methylprednisolone Sodium Succinate (Solu-Medrol -) 40 mg IVPB BID [facility] Oxycodone HCl (Roxicodone -) 5 mg PO Q6H PRN PRN Reason: PAIN LEVEL 1-5 Last Admin: 12/08/16 09:25 Dose: 5 mg Oxycodone HCl (Roxicodone -) 10 mg PO Q6H PRN PRN Reason: PAIN LEVEL 6-10 Pantoprazole Sodium (Protonix -) 40 mg PO DAILY [facility] Last Admin: 12/09/16 09:03 Dose: 40 mg Piperacillin Sod/Tazobactam Sod (Zosyn 3.375gm Ivpb (Pre-Docked)) 3.375 gm IVPB Q8H-IV [facility] PRN Reason: Protocol Last Admin: 12/09/16 09:02 Dose: 3.375 gm ASSESSMENT AND PLAN: Left Foot Cellulitis Severe Sepsis resolving Lactic Acidosis resolved Acute on Chronic Renal Failure Gout h/o Gastritits - antibiotics per ID - f/u cultures - IVF - monitor urine output, creatinine - rapid taper off steroids - pain control - PO as tolerated - DVT prophylaxis - can monitor on floor
--- NOTE | 2016-12-09 16:53 | PN ---
Progress Note (short form) - Note Progress Note: feels much better today no fevers Vital Signs Period Temp Pulse Resp BP Sys/Mcgarry Pulse Ox Last 24 Hr 98.0 F-98.5 F 70-110 18-20 114-133/70-93 95-95 cor-rrr llungs clear abd soft,nt ext no edema CBC, BMP 12/09/16 05:10 12/09/16 05:10 Microbiology 12/07/16 13:00 Blood - Peripheral Venous Blood Culture - Preliminary NO GROWTH OBTAINED AFTER 24 HOURS, INCUBATION TO CONTINUE FOR 4 DAYS. 12/07/16 19:00 Blood - Peripheral Venous Blood Culture - Preliminary NO GROWTH OBTAINED AFTER 24 HOURS, INCUBATION TO CONTINUE FOR 4 DAYS. a/p sepsis resolving cellulitis of the left foot gout LAURA cultures negative will switch to rocephin Problem List - Problems (1) Sepsis Code(s): A41.9 - SEPSIS, UNSPECIFIED ORGANISM Qualifiers: Sepsis type: sepsis due to unspecified organism Qualified Code(s): A41.9 - Sepsis, unspecified organism (2) Cellulitis Code(s): L03.90 - CELLULITIS, UNSPECIFIED (3) Gout Code(s): M10.9 - GOUT, UNSPECIFIED (4) LAURA (acute kidney injury) Code(s): N17.9 - ACUTE KIDNEY FAILURE, UNSPECIFIED
[2016-12-09] MEDS ORDERED: cefTRIAXone 2 GM/100 ML BAG (PRE-DOCKED) IVPB SCH (17:30)
[2016-12-09] MEDS ORDERED: oxyCODONE HCL 5 MG TABLET PO PRN ×2 (18:54)
[2016-12-09] MEDS ORDERED: SODIUM CHLORIDE 1,000 ML IV SCH (18:54)
[2016-12-09] MEDS ORDERED: ACETAMINOPHEN 325 MG TABLET (FP) PO PRN ×3 (18:54)
[2016-12-09] MEDS ORDERED: methylPREDNISolone NA SUCC 40 MG/1 ML VIAL IVPB SCH (22:00)
[2016-12-10 06:57] VITALS: TEMP 97.7
[2016-12-10 07:49] LABS: BASOPHIL 0.2 % (0-2.0); MCHC 33.4 g/dl (32.0-35.9); MEAN CELL VOLUME 86.8 fl (80-96); MEAN PLT VOLUME 6.8 fl (7.5-11.1); NEUTROPHILS 90.9 % (42.8-82.8); PLATELET COUNT 242 K/MM3 (134-434); RDW 13.4 % (11.9-15.9); WHITE BLOOD COUNT 12.7 K/mm3 (4.0-10.0)
--- NOTE | 2016-12-10 07:54 | PN ---
Progress Note, Physician Chief Complaint: ID Doing well ? steroid effect Ceftriaxone - Current Medication List Current Medications: Active Medications Acetaminophen (Tylenol -) 650 mg PO Q6H PRN PRN Reason: FEVER Acetaminophen (Tylenol -) 325 mg PO Q6H PRN PRN Reason: PAIN LEVEL 1-5 Acetaminophen (Tylenol -) 650 mg PO Q6H PRN PRN Reason: PAIN LEVEL 6-10 Heparin Sodium (Porcine) (Heparin -) 5,000 unit SQ BID [facility] Last Admin: 12/09/16 21:28 Dose: 5,000 unit Ceftriaxone Sodium 2 gm/ (Dextrose) 100 mls @ 200 mls/hr IVPB DAILY [facility] Methylprednisolone Sodium Succinate (Solu-Medrol -) 40 mg IVPB BID [facility] Last Admin: 12/09/16 21:23 Dose: 40 mg Oxycodone HCl (Roxicodone -) 5 mg PO Q6H PRN PRN Reason: PAIN LEVEL 1-5 Pantoprazole Sodium (Protonix -) 40 mg PO DAILY [facility] - Objective Vital Signs: Vital Signs Temperature 97.7 F 12/10/16 06:56 Pulse Rate 82 12/10/16 06:56 Respiratory Rate 20 12/10/16 06:56 Blood Pressure 134/72 12/10/16 06:56 O2 Sat by Pulse Oximetry (%) 95 12/09/16 21:00 Constitutional: Yes: No Distress Neck: Yes: WNL, Supple Cardiovascular: Yes: Regular Rate and Rhythm, S1, S2 Respiratory: Yes: WNL, Regular, CTA Bilaterally Gastrointestinal: Yes: WNL, Normal Bowel Sounds, Soft. No: Tenderness Extremities: Yes: Other (Swelling foot no erythema) Labs: INR, PTT INR 1.39 (0.82-1.09) H D 12/07/16 22:00 Assessment/Plan Microbiology 12/07/16 19:00 Blood - Peripheral Venous Blood Culture - Preliminary NO GROWTH OBTAINED AFTER 48 HOURS, INCUBATION TO CONTINUE FOR 3 DAYS. 12/07/16 13:00 Blood - Peripheral Venous Blood Culture - Preliminary NO GROWTH OBTAINED AFTER 48 HOURS, INCUBATION TO CONTINUE FOR 3 DAYS. Laboratory Tests 12/07/16 12/07/16 12/09/16 20:20 20:20 05:10 WBC 8.8 Hgb 11.5 L Hct 33.8 L Plt Count 213 ESR 94 H BUN Creatinine Creat Clearance w eGFR C-Reactive Protein 10.4 H 12/09/16 05:10 WBC Hgb Hct Plt Count ESR BUN 22 H Creatinine 1.6 H Creat Clearance w eGFR 42.82 C-Reactive Protein Assessment Suspect acute gout with fever mimicking cellulitis Plan Consider stopping Ceftriaxone Will sign off Jesusita AMIN
[2016-12-10 08:15] LABS: ALBUMIN 2.5 g/dl (3.4-5.0); ALK PHOS 41 U/L (45-117); ANION GAP 10 (8-16); BILIRUBIN,TOTAL 0.4 mg/dL (0.2-1.0); CALCIUM 7.7 mg/dL (8.5-10.1); CO2 20 mmol/L (21-32); CREATININE 1.7 mg/dL (0.7-1.3); GLUCOSE,RANDOM 110 mg/dL (74-106); MAGNESIUM 2.2 mg/dL (1.8-2.4); PHOSPHOROUS 2.9 mg/dL (2.5-4.9); SGOT/AST 11 U/L (15-37); SGPT/ALT 11 U/L (12-78); TOT PROT 5.5 g/dl (6.4-8.2)
[2016-12-10] MEDS ORDERED: DEXTROSE 5%-WATER 100 ML IVPB ONE (09:18)
[2016-12-10 09:21] VITALS: BP 143/79; PULSE 76
[2016-12-10] MEDS: HEPARIN NA (PORCINE) 5,000 UNITS/ML 1ML VIAL SQ SCH (09:27)
[2016-12-10] MEDS: methylPREDNISolone NA SUCC 40 MG/1 ML VIAL IVPB SCH (09:29)
[2016-12-10] MEDS ORDERED: PANTOPRAZOLE 40 MG TABLET (FP) PO SCH (10:00)
[2016-12-10] MEDS ORDERED: CEFTRIAXONE 2 GM in DEXTROSE 5%-WATER 100 ML IVPB SCH (10:00)
--- NOTE | 2016-12-10 10:29 | DS ---
Physical Examination Vital Signs: Vital Signs Temperature 97.7 F 12/10/16 09:20 Pulse Rate 76 12/10/16 09:20 Respiratory Rate 220 H 12/10/16 09:20 Blood Pressure 143/79 12/10/16 09:20 O2 Sat by Pulse Oximetry (%) 95 12/09/16 21:00 Constitutional: Yes: No Distress, Calm Cardiovascular: Yes: Regular Rate and Rhythm Respiratory: Yes: CTA Bilaterally Gastrointestinal: Yes: Normal Bowel Sounds, Soft. No: Distention, Tenderness Edema: No Labs: CBC, BMP 12/10/16 06:30 12/10/16 06:30 Discharge Summary Reason For Visit: SEPSIS Current Active Problems LAURA (acute kidney injury) (Acute) Cellulitis (Acute) Gout (Acute) Left foot pain (Acute) Sepsis (Acute) Hospital Course: admitted for left foot pain and swelling, fever and sepsis Patient was initially hypotensive and was admitted in ICU Hypotension resolved with IV fluids and antibiotics He also received a short course of steroids Blood cultures were negative likely due to acute gout with secondary infection seen by infectious disease, antibiotics discontinued Patient is stable for discharge, he is ambulating well. He is discharged on tapering prednisone Condition: Improved - Instructions Diet, Activity, Other Instructions: Inform MD of any temp 101 or over or increased foot pain. Referrals: Iva Hamm MD [Primary Care Provider] - Disposition: HOME - Home Medications Comprehensive Discharge Medication List: Ambulatory Orders Allopurinol [Zyloprim -] 100 mg PO DAILY 10/26/13 Gabapentin 100 mg PO TID 10/26/13 Oxycodone HCl/Acetaminophen [Percocet 5-325 mg Tablet] 1 - 2 tab PO Q6H PRN #12 tab MDD 4 11/16/15 Prednisone 10 mg PO DAILY #40 tablet 12/10/16
== END 2016-12-10 12:00 | disposition home or self-care (01) | DRG 720 ==
LOC: JER 14:56 → JICU 22:26 → J8W 12-09 18:44
PROVIDERS: ADMIT Internal Medicine; ATTEND Internal Medicine
DX: A41.9 Sepsis, unspecified organism (principal); D64.9 Anemia, unspecified; L03.116 Cellulitis of left lower limb; N17.9 Acute kidney failure, unspecified; E78.00 Pure hypercholesterolemia, unspecified; M10.9 Gout, unspecified; K20.8 Other esophagitis; M79.672 Pain in left foot; R00.0 Tachycardia, unspecified; E87.2 Acidosis; N18.9 Chronic kidney disease, unspecified; K29.60 Other gastritis without bleeding
CPT/HCPCS: 36415; 71010-TC; 73630-TC-LT; 80053; 82803; 83605; 83735; 84100; 84484; 84550; 85025; 85610; 85651; 85730; 86140; 86850; 86900; 86901; 87040; 93005; 93010; 93306-TC; 99283-25; G0480; J1644

== ENCOUNTER 2016-12-23 20:25 | Inpatient (IN) | payer OTHER ==
[2016-12-23 20:39] VITALS: BMI 21.7
[2016-12-23] MEDS ORDERED: SODIUM CHLORIDE 0.9% 1000 ML INFUS.BAG IV ONE (21:14)
--- NOTE | 2016-12-23 21:31 | PDOC ---
History of Present Illness - General Chief Complaint: SIRS, Suspected/Possible Stated Complaint: FATIGUE Time Seen by Provider: 12/23/16 20:52 History Source: Patient, Family Exam Limitations: No Limitations - History of Present Illness Initial Comments: 12/23/16 21:25 The patient is a 71M with a PMH of GERD and gout who presents to the ED with his family for 1.5 days of weakness. The family states that the patient was not feeling himself and had generalized weakness since last night. The patient denies any fever, chills, CP, SOB, and focal neurologic deficits but admits to a "slight" cough and increased in frequency of urination. The patient was recently discharged from [facility] for a bout of gout with cellulitis. He is a patient of Dr. Iva Hamm. All: NKDA Soc: none Past History - Past Medical History Allergies/Adverse Reactions: Allergies Allergy/AdvReac Type Severity Reaction Status Date / Time No Known Allergies Allergy Verified 12/23/16 20:39 Home Medications: Ambulatory Orders Allopurinol [Zyloprim -] 100 mg PO DAILY 10/26/13 Gabapentin 100 mg PO TID 10/26/13 Prednisone 10 mg PO DAILY #40 tablet 12/10/16 Calcium Carbonate - 600 mg PO DAILY 12/23/16 Colchicine 0.6 mg PO ASDIR 12/23/16 Enalapril Maleate [Vasotec -] 10 mg PO DAILY 12/23/16 Hydroxychloroquine Sulfate 200 mg PO DAILY 12/23/16 Leflunomide 20 mg PO DAILY 12/23/16 Omeprazole 10 mg PO DAILY 12/23/16 Sulfasalazine 500 mg PO DAILY 12/23/16 Anemia: Yes Asthma: No Cancer: No Cardiac Disorders: No CVA: No COPD: No CHF: No Dementia: No Diabetes: No GI Disorders: Yes (H.PYLORI GI TRACT INFECTION,ESOPHAGITIS,DIAPHRAGMATIC HERNIA, EARLY SATIETY,) Disorders: No HTN: No Hypercholesterolemia: Yes Liver Disease: No Seizures: No Thyroid Disease: No - Surgical History Abdominal Surgery: No Appendectomy: No Cardiac Surgery: No Cholecystectomy: No Lung Surgery: No Neurologic Surgery: No Orthopedic Surgery: No - Suicide/Smoking/Psychosocial Hx Smoking Status: No Smoking History: Never smoked Have you smoked in the past 12 months: No Number of Cigarettes Smoked Daily: 0 Information on smoking cessation initiated: No Hx Alcohol Use: No Drug/Substance Use Hx: No Substance Use Type: None Hx Substance Use Treatment: No Review of Systems - Review of Systems Able to Perform ROS?: Yes Is the patient limited Kyrgyz proficient: No Constitutional: No: Chills, Fever HEENTM: No: Eye Pain, Ear Pain, Throat Pain Respiratory: Yes: Cough. No: Shortness of Breath Cardiac (ROS): No: Chest Pain, Palpitations ABD/GI: No: Nausea, Vomiting : Yes: Frequency. No: Burning, Dysuria Musculoskeletal: No: Back Pain, Muscle Weakness Neurological: No: Headache, Numbness, Tingling, Weakness *Physical Exam - Vital Signs Last Vital Signs Temp Pulse Resp BP Pulse Ox 100.5 F H 95 H 18 85/53 99 12/23/16 20:33 12/23/16 20:33 12/23/16 20:33 12/23/16 20:33 12/23/16 20:33 - Physical Exam General Appearance: Yes: Nourished, Appropriately Dressed HEENT: positive: Normal Voice, Hearing Grossly Normal Respiratory/Chest: positive: Lungs Clear, Normal Breath Sounds. negative: Chest Tender, Respiratory Distress, Accessory Muscle Use Cardiovascular: positive: Regular Rhythm, Regular Rate, S1, S2. negative: Diastolic Murmur, Systolic Murmur Gastrointestinal/Abdominal: positive: Flat, Soft. negative: Tender, Distended, Guarding, Rebound, Tenderness Musculoskeletal: negative: CVA Tenderness, CVA Tenderness (R), CVA Tenderness (L ) Extremity: positive: Normal Inspection, Normal Range of Motion. negative: Swelling, Calf Tenderness Integumentary: positive: Dry, Warm. negative: Clammy, Diaphoresis Neurologic: positive: Fully Oriented, Alert, Normal Mood/Affect, Normal Response , Motor Strength 5/5 ED Treatment Course - LABORATORY CBC & Chemistry Diagram: 12/23/16 21:41 12/23/16 21:41 - RADIOLOGY Radiology Studies Ordered: Category Date Time Status CHEST X-RAY PORTABLE* [RAD] Stat Radiology 12/23/16 21:14 Ordered Medical Decision Making - Medical Decision Making 12/23/16 21:32 The patient is a 71M with a PMH of GERD and gout who presents to the ED with 1 day of generalized weakness. The patient was recently discharged from [facility] but presents with vitals notable for hypotension and fever. Septic protocol is being followed. I will reassess the patient when labs return and order broad spectrum antibiotics for presumed infection. 12/23/16 21:56 The patient has been signed out to Dr. Sotelo. *DC/Admit/Observation/Transfer Diagnosis at time of Disposition: Sepsis - Discharge Dispostion Condition at time of disposition: Guarded
[2016-12-23] MEDS ORDERED: VANCOMYCIN 1,000 MG in DEXTROSE 5%-WATER - 250 ML IVPB ONE (21:34)
[2016-12-23] MEDS ORDERED: PIPERACILLIN/TAZOB 3.375 GM/50 ML PRE-DOCKED IV ONE (21:34)
[2016-12-23 21:59] LABS: MCH 29.2 pg (25.7-33.7); MCHC 32.8 g/dl (32.0-35.9); MEAN CELL VOLUME 89.2 fl (80-96); MEAN PLT VOLUME 7.4 fl (7.5-11.1); PLATELET COUNT 233 K/MM3 (134-434); WHITE BLOOD COUNT 14.8 K/mm3 (4.0-10.0)
[2016-12-23 22:17] LABS: URINE APPEARANCE SLCLOUDY; URINE BILIRUBIN NEGATIVE (NEGATIVE); URINE BLOOD NEGATIVE (NEGATIVE); URINE COLOR DKYELLOW; URINE GLUCOSE (UA) NEGATIVE (NEGATIVE); URINE KETONE NEGATIVE (NEGATIVE); URINE NITRITE NEGATIVE (NEGATIVE); URINE PROTEIN NEGATIVE (NEGATIVE); URINE UROBILINOGEN NEGATIVE mg/dL (0.2-1.0)
[2016-12-23 22:20] LABS: INR 1.04 (0.82-1.09); PROTHROMBIN TIME (PATIENT) 11.8 SEC (9.98-11.88)
[2016-12-23 22:23] LABS: ACTIVATED PTT 30.6 SECONDS (26.9-34.4)
[2016-12-23 22:30] LABS: ALBUMIN 3.3 g/dl (3.4-5.0); ANION GAP 10 (8-16); BILIRUBIN,TOTAL 0.5 mg/dL (0.2-1.0); CO2 21 mmol/L (21-32); GLUCOSE,RANDOM 91 mg/dL (74-106); SGOT/AST 10 U/L (15-37); SGPT/ALT 19 U/L (12-78); TOT PROT 6.4 g/dl (6.4-8.2)
[2016-12-23 22:33] LABS: ALK PHOS 69 U/L (45-117); CPK 35 IU/L (39-308); TROPONIN I < 0.02 ng/ml (0.00-0.05)
[2016-12-23] MEDS ORDERED: PIPERACILLIN/TAZOB 3.375 GM 50 ML IVPB ONE (22:49)
[2016-12-23] MEDS ORDERED: VANCOMYCIN 1 GRAM (PRE-DOCKED) 250 ML IVPB ONE (22:49)
--- NOTE | 2016-12-23 23:06 | PDOC ---
Attending Attestation - Resident Resident Name: Carlos ADequan billingsley - ED Attending Attestation I have performed the following: I have examined & evaluated the patient, The case was reviewed & discussed with the resident, I agree w/resident's findings & plan, Exceptions are as noted - HPI HPI: 12/23/16 23:02 71yo M hx H.Pylori, esophagitis, HLD, gout, recent admission to ICU for sepsis 2 /2 foot cellulitis p/w 1 day of fever with tmax of 101, generalized weakness, mild cough and urinary frequency. Family reports he is urinating every hour since yesterday. Denies sick contacts. Denies CP, SOB, headache, neck pain, abd pain, LE edema, rashes. - Physicial Exam PE: 12/23/16 23:03 GENERAL: Awake, alert, and fully oriented, lethargic but arousable. BP 86/58 HEAD: No signs of trauma EYES: PERRLA, EOMI, sclera anicteric, conjunctiva clear ENT: Auricles normal inspection, hearing grossly normal, nares patent, oropharynx clear without exudates. Moist mucosa NECK: Normal ROM, supple, no lymphadenopathy, JVD, or masses LUNGS: Breath sounds equal, clear to auscultation bilaterally. No wheezes, and no crackles HEART: tachycardic to 102 but regular, normal S1 and S2, no murmurs, rubs or gallops ABDOMEN: Soft, nontender, normoactive bowel sounds. No guarding, no rebound. No masses EXTREMITIES: Normal range of motion, no edema. No clubbing or cyanosis. No cords, erythema, or tenderness NEUROLOGICAL: Normal speech, cranial nerves intact, negative pronator drift, 5/ 5 strength in all 4 extremities, normal sensation to light touch in all 4 extremities, normal cerebellar exam, normal gait, normal reflexes and tone SKIN: Warm, Dry, normal turgor, no rashes or lesions noted. - Medical Decision Making 12/23/16 23:04 71-year-old male with a history of GERD, esophagitis, hyperlipidemia, gout and recent admission to the ICU for sepsis secondary to cellulitis presents with 1 day of fever, generalized weakness, and urinary frequency. Vitals concerning for hypotension to 86/58, fever to 100.5 orally, and tachycardia to 102. Exam with clear lungs and no abdominal tenderness to palpation. Concern for recurrent sepsis with possible source UTI versus pneumonia. No skin lesions concerning for cellulitis. Plan: -labs -ivf -flu swab -vanc/zosyn -ua/ucx -blood cx -admit Laboratory Last Values WBC 14.8 K/mm3 (4.0-10.0) H 12/23/16 21:41 RBC 4.45 M/mm3 (4.00-5.60) D 12/23/16 21:41 Hgb 13.0 GM/dL (11.7-16.9) D 12/23/16 21:41 Hct 39.6 % (35.4-49) D 12/23/16 21:41 MCV 89.2 fl (80-96) 12/23/16 21:41 MCH 29.2 pg (25.7-33.7) 12/23/16 21:41 MCHC 32.8 g/dl (32.0-35.9) 12/23/16 21:41 RDW 16.0 % (11.9-15.9) H D 12/23/16 21:41 Plt Count 233 K/MM3 (134-434) 12/23/16 21:41 MPV 7.4 fl (7.5-11.1) L 12/23/16 21:41 Neutrophils % No Result Required. 12/23/16 21:41 Neutrophils % (Manual) 74 % (42.8-82.8) 12/23/16 21:41 Band Neuts % (Manual) 3 % (0-10) 12/23/16 21:41 Lymphocytes % No Result Required. 12/23/16 21:41 Lymphocytes % (Manual) 17 % (8-40) 12/23/16 21:41 Monocytes % (Manual) 5 % (3.8-10.2) 12/23/16 21:41 Eosinophils % (Manual) 1 % (0-4.5) 12/23/16 21:41 Platelet Estimate Adequate (NORMAL) 12/23/16 21:41 Platelet Comment No clumping noted 12/23/16 21:41 Platelet Comment No clumping noted 12/23/16 21:41 PT with INR 11.80 SEC (9.98-11.88) 12/23/16 21:41 INR 1.04 (0.82-1.09) 12/23/16 21:41 PTT (Actin FS) 30.6 SECONDS (26.9-34.4) 12/23/16 21:41 VBG pH 7.33 (7.32-7.42) 12/23/16 23:30 POC VBG pCO2 37.6 mmHg (38-52) L 12/23/16 23:30 POC VBG pO2 44.7 mmHg (28-48) D 12/23/16 23:30 Mixed VBG HCO3 19.3 meq/L (19-25) 12/23/16 23:30 Sodium 138 mmol/L (136-145) 12/23/16 21:41 Potassium 5.0 mmol/L (3.5-5.1) 12/23/16 21:41 Chloride 107 mmol/L (98-107) 12/23/16 21:41 Carbon Dioxide 21 mmol/L (21-32) 12/23/16 21:41 Anion Gap 10 (8-16) 12/23/16 21:41 BUN 33 mg/dL (7-18) H D 12/23/16 21:41 Creatinine 2.0 mg/dL (0.7-1.3) H 12/23/16 21:41 Creat Clearance w eGFR 33.10 (>60) 12/23/16 21:41 Random Glucose 91 mg/dL (74-106) 12/23/16 21:41 Lactic Acid 0.7 mmol/L (0.4-2.0) 12/23/16 21:41 Calcium 8.0 mg/dL (8.5-10.1) L 12/23/16 21:41 Total Bilirubin 0.5 mg/dL (0.2-1.0) D 12/23/16 21:41 AST 10 U/L (15-37) L 12/23/16 21:41 ALT 19 U/L (12-78) D 12/23/16 21:41 Alkaline Phosphatase 69 U/L (45-117) D 12/23/16 21:41 Creatine Kinase 35 IU/L (39-308) L 12/23/16 21:41 Troponin I < 0.02 ng/ml (0.00-0.05) 12/23/16 21:41 Total Protein 6.4 g/dl (6.4-8.2) 12/23/16 21:41 Albumin 3.3 g/dl (3.4-5.0) L D 12/23/16 21:41 Urine Color Dkyellow 12/23/16 21:41 Urine Appearance Slcloudy 12/23/16 21:41 Urine pH 5.0 (5.0-8.0) 12/23/16 21:41 Urine Protein Negative (NEGATIVE) 12/23/16 21:41 Urine Glucose (UA) Negative (NEGATIVE) 12/23/16 21:41 Urine Ketones Negative (NEGATIVE) 12/23/16 21:41 Urine Blood Negative (NEGATIVE) 12/23/16 21:41 Urine Nitrite Negative (NEGATIVE) 12/23/16 21:41 Urine Bilirubin Negative (NEGATIVE) 12/23/16 21:41 Urine Urobilinogen Negative mg/dL (0.2-1.0) 12/23/16 21:41 Blood Type AB POSITIVE 12/23/16 21:41 Antibody Screen Negative 12/23/16 21:41 12/24/16 01:19 Labs with leukocytosis to 14.8. Lactate negative. CXR negative. Flu swab negative. UA only partially back with no reported leuk esterase and WBCs. The lab reports that these values can not be reported until the morning due to a problem with the machine. Pt covered with Vanc/Zosyn for presumed sepsis 2/2 UTI given fever, tachycardia, and hypotension with urinary frequency. BP up to 90s systolic (from 80s systolic on presentation) after 1L NS. Ordered a second liter as his family reports his baseline BP is in the 120s/130s systolic. Case discussed in detail with admitting physician Dr. Naz Narvaez including history, physical exam and ancillary studies. Admitting physician has assumed care for the patient, will follow all pending diagnostics and will complete the evaluation and treatment. Discharge Disposition - Diagnosis Sepsis - Discharge Dispostion Condition at time of disposition: Guarded Last Admission D/C Date: 12/10/16 Admit: Yes - Transfer to Acute Care Facility Transfer comment: 12/24/16 01:26 I, Dr. Joy Sotelo MD, attest that this document has been prepared under my direction and personally reviewed by me in its entirety. I further attest, that it accurately reflects all work, treatment, procedures and medical decision -making performed by me. Heart Score/ECG Review #1 12/24/16 01:24 Twelve-lead EKG was performed and reviewed by me. Normal sinus rhythm, rate 87. Normal intervals no ST elevations or T-wave inversions
[2016-12-23 23:13] LABS: PLATELET ESTIMATE ADEQUATE (NORMAL)
[2016-12-23 23:14] LABS: PLATELET COMMENT2 NO CLUMPING NOTED; PLATELET COMMENT3 FEW LARGE PLTS
[2016-12-23 23:40] LABS: VENOUS BLOOD GAS HCO3 19.3 meq/L (19-25); VENOUS PH 7.33 (7.32-7.42)
[2016-12-24] MEDS ORDERED: ACETAMINOPHEN 500 MG TABLET (FP) PO ONE (00:09)
[2016-12-24] MEDS ORDERED: ACETAMINOPHEN 325 MG TABLET (FP) ONE (01:11)
[2016-12-24] MEDS: SODIUM CHLORIDE 1,000 ML IV SCH ×2 (08:00→16:04)
[2016-12-24] MEDS ORDERED: CEFTRIAXONE 1 G/50 ML PREMIX 50 ML IVPB SCH (10:00)
--- NOTE | 2016-12-24 10:12 | HP ---
Admitting History and Physical - Primary Care Physician PCP: Iva Hamm - Admission Chief Complaint: UTI History of Present Illness: ER history - History of Present Illness Initial Comments: 12/23/16 21:25 The patient is a 71M with a PMH of GERD and gout who presents to the ED with his family for 1.5 days of weakness. The family states that the patient was not feeling himself and had generalized weakness since last night. The patient denies any fever, chills, CP, SOB, and focal neurologic deficits but admits to a "slight" cough and increased in frequency of urination. The patient was recently discharged from [facility] for a bout of gout with cellulitis. He is a patient of Dr. Iva Hamm. All: NKDA Soc: none patient seen by me in ER Recent admission for acute gout Has been having increased frequency of urination, denies dysuria but does have lower abdominal pain for a few days. Was found to have high fever and felt very dizzy and fatigued last night and family brought him to the emergency room received Antibiotics in the ER Currently feels okay Still complains of lower abdominal pain History Source: Patient Limitations to Obtaining History: No Limitations - Past Medical History Cardiovascular: Yes: Hyperlipdemia Gastrointestinal: Yes: Other (Esophagitis) Rheumatology: Yes: Gout - Smoking History Smoking history: Never smoked Have you smoked in the past 12 months: No Aproximately how many cigarettes per day: 0 - Alcohol/Substance Use Hx Alcohol Use: No Home Medications - Allergies Allergies/Adverse Reactions: Allergies Allergy/AdvReac Type Severity Reaction Status Date / Time No Known Allergies Allergy Verified 12/23/16 20:39 - Home Medications Home Medications: Ambulatory Orders Allopurinol [Zyloprim -] 100 mg PO DAILY 10/26/13 Gabapentin 100 mg PO TID 10/26/13 Prednisone 10 mg PO DAILY #40 tablet 12/10/16 Calcium Carbonate - 600 mg PO DAILY 12/23/16 Colchicine 0.6 mg PO ASDIR 12/23/16 Enalapril Maleate [Vasotec -] 10 mg PO DAILY 12/23/16 Hydroxychloroquine Sulfate 200 mg PO DAILY 12/23/16 Leflunomide 20 mg PO DAILY 12/23/16 Omeprazole 10 mg PO DAILY 12/23/16 Sulfasalazine 500 mg PO DAILY 12/23/16 Review of Systems - Review of Systems Constitutional: reports: Chills, Fever, Weakness Genitourinary: reports: Frequency. denies: Burning, Discharge Physical Examination Vital Signs: Vital Signs Temperature 98.0 F 12/24/16 09:05 Pulse Rate 63 12/24/16 09:05 Respiratory Rate 18 12/24/16 09:05 Blood Pressure 119/58 12/24/16 09:05 O2 Sat by Pulse Oximetry (%) 98 12/24/16 06:04 Constitutional: Yes: No Distress, Calm Cardiovascular: Yes: Regular Rate and Rhythm Respiratory: Yes: CTA Bilaterally Gastrointestinal: Yes: Normal Bowel Sounds, Soft, Tenderness (suprapubic). No: Distention Edema: No Psychiatric: Yes: Alert, Oriented Labs: Laboratory Last Values WBC 14.8 K/mm3 (4.0-10.0) H 12/23/16 21:41 RBC 4.45 M/mm3 (4.00-5.60) D 12/23/16 21:41 Hgb 13.0 GM/dL (11.7-16.9) D 12/23/16 21:41 Hct 39.6 % (35.4-49) D 12/23/16 21:41 MCV 89.2 fl (80-96) 12/23/16 21:41 MCH 29.2 pg (25.7-33.7) 12/23/16 21:41 MCHC 32.8 g/dl (32.0-35.9) 12/23/16 21:41 RDW 16.0 % (11.9-15.9) H D 12/23/16 21:41 Plt Count 233 K/MM3 (134-434) 12/23/16 21:41 MPV 7.4 fl (7.5-11.1) L 12/23/16 21:41 Neutrophils % No Result Required. 12/23/16 21:41 Neutrophils % (Manual) 74 % (42.8-82.8) 12/23/16 21:41 Band Neuts % (Manual) 3 % (0-10) 12/23/16 21:41 Lymphocytes % No Result Required. 12/23/16 21:41 Lymphocytes % (Manual) 17 % (8-40) 12/23/16 21:41 Monocytes % (Manual) 5 % (3.8-10.2) 12/23/16 21:41 Eosinophils % (Manual) 1 % (0-4.5) 12/23/16 21:41 Platelet Estimate Adequate (NORMAL) 12/23/16 21:41 Platelet Comment No clumping noted 12/23/16 21:41 Platelet Comment No clumping noted 12/23/16 21:41 PT with INR 11.80 SEC (9.98-11.88) 12/23/16 21:41 INR 1.04 (0.82-1.09) 12/23/16 21:41 PTT (Actin FS) 30.6 SECONDS (26.9-34.4) 12/23/16 21:41 VBG pH 7.33 (7.32-7.42) 12/23/16 23:30 POC VBG pCO2 37.6 mmHg (38-52) L 12/23/16 23:30 POC VBG pO2 44.7 mmHg (28-48) D 12/23/16 23:30 Mixed VBG HCO3 19.3 meq/L (19-25) 12/23/16 23:30 Sodium 138 mmol/L (136-145) 12/23/16 21:41 Potassium 5.0 mmol/L (3.5-5.1) 12/23/16 21:41 Chloride 107 mmol/L (98-107) 12/23/16 21:41 Carbon Dioxide 21 mmol/L (21-32) 12/23/16 21:41 Anion Gap 10 (8-16) 12/23/16 21:41 BUN 33 mg/dL (7-18) H D 12/23/16 21:41 Creatinine 2.0 mg/dL (0.7-1.3) H 12/23/16 21:41 Creat Clearance w eGFR 33.10 (>60) 12/23/16 21:41 Random Glucose 91 mg/dL (74-106) 12/23/16 21:41 Lactic Acid 0.7 mmol/L (0.4-2.0) 12/23/16 21:41 Calcium 8.0 mg/dL (8.5-10.1) L 12/23/16 21:41 Total Bilirubin 0.5 mg/dL (0.2-1.0) D 12/23/16 21:41 AST 10 U/L (15-37) L 12/23/16 21:41 ALT 19 U/L (12-78) D 12/23/16 21:41 Alkaline Phosphatase 69 U/L (45-117) D 12/23/16 21:41 Creatine Kinase 35 IU/L (39-308) L 12/23/16 21:41 Troponin I < 0.02 ng/ml (0.00-0.05) 12/23/16 21:41 Total Protein 6.4 g/dl (6.4-8.2) 12/23/16 21:41 Albumin 3.3 g/dl (3.4-5.0) L D 12/23/16 21:41 Urine Color Dkyellow 12/23/16 21:41 Urine Appearance Slcloudy 12/23/16 21:41 Urine pH 5.0 (5.0-8.0) 12/23/16 21:41 Ur Specific [place] 1.025 (1.005-1.025) 12/23/16 21:41 Urine Protein Negative (NEGATIVE) 12/23/16 21:41 Urine Glucose (UA) Negative (NEGATIVE) 12/23/16 21:41 Urine Ketones Negative (NEGATIVE) 12/23/16 21:41 Urine Blood Negative (NEGATIVE) 12/23/16 21:41 Urine Nitrite Negative (NEGATIVE) 12/23/16 21:41 Urine Bilirubin Negative (NEGATIVE) 12/23/16 21:41 Urine Urobilinogen Negative mg/dL (0.2-1.0) 12/23/16 21:41 Ur Leukocyte Esterase Negative (NEGATIVE) 12/23/16 21:41 Blood Type AB POSITIVE 12/23/16 21:41 Antibody Screen Negative 12/23/16 21:41 Imaging - Results Chest X-ray: Image Reviewed (clear) Ultrasound: Report Reviewed (renal cysts, no BPH) EKG: Image Reviewed (normal sinus rhythm) Problem List - Problems (1) Acute prostatitis Code(s): N41.0 - ACUTE PROSTATITIS (2) Sepsis Code(s): A41.9 - SEPSIS, UNSPECIFIED ORGANISM (3) UTI (urinary tract infection) Code(s): N39.0 - URINARY TRACT INFECTION, SITE NOT SPECIFIED (4) LAURA (acute kidney injury) Code(s): N17.9 - ACUTE KIDNEY FAILURE, UNSPECIFIED Assessment/Plan plan IV fluids IV antibiotics Urine cultures not yet obtained Renal and bladder ultrasound noted Infectious disease consult Monitor renal function Out of bed DVT prophylaxis- Lovenox
[2016-12-24 11:36] LABS: URINE LEUK ESTERASE Negative (NEGATIVE)
--- NOTE | 2016-12-24 11:54 | EKG ---
Test Reason : Blood Pressure : / mmHG Vent. Rate : 087 BPM Atrial Rate : 087 BPM P-R Int : 164 ms QRS Dur : 084 ms QT Int : 326 ms P-R-T Axes : 010 -09 031 degrees QTc Int : 392 ms NORMAL SINUS RHYTHM LOW VOLTAGE QRS BORDERLINE ECG WHEN COMPARED WITH ECG OF 08-DEC-2016 10:41, NO SIGNIFICANT CHANGE WAS FOUND Confirmed by BETINA JOSE MD ([id number]) on 12/24/2016 11:53:58 AM Referred By: Confirmed By:BETINA JOSE MD
[2016-12-24] MEDS: LEFLUNOMIDE 10 MG TABLET PO SCH (12:35)
[2016-12-24] MEDS: ALLOPURINOL 100 MG TABLET (FP) PO SCH (12:36)
[2016-12-24] MEDS: HYDROXYCHLOROQUINE SO4 200 MG TABLET (FP) PO SCH (12:36)
--- NOTE | 2016-12-24 14:13 | PN ---
Progress Note, Physician Chief Complaint: ID Full note dictated Fevers at home frequent urination - Current Medication List Current Medications: Active Medications Allopurinol (Zyloprim -) 100 mg PO DAILY [facility] Last Admin: 12/24/16 12:36 Dose: 100 mg Hydroxychloroquine Sulfate (Plaquenil -) 200 mg PO DAILY [facility] Last Admin: 12/24/16 12:36 Dose: 200 mg CEFTRIAXONE 1 G/50 ML PREMIX (Ceftriaxone 1 Gm-D5w Bag) 50 mls @ 100 mls/hr IVPB DAILY [facility] Last Admin: 12/24/16 11:01 Dose: 100 mls/hr Sodium Chloride (Normal Saline -) 1,000 mls @ 100 mls/hr IV ASDIR [facility] Last Admin: 12/24/16 08:00 Dose: 100 mls/hr Leflunomide (Arava -) 20 mg PO DAILY [facility] Last Admin: 12/24/16 12:35 Dose: 20 mg Non-Formulary Medication (Omeprazole [Omeprazole]) 10 mg PO DAILY [facility] Sulfasalazine (Azulfidine En-Tabs -) 500 mg PO DAILY [facility] Last Admin: 12/24/16 12:35 Dose: 500 mg - Objective Vital Signs: Vital Signs Temperature 98.0 F 12/24/16 09:05 Pulse Rate 63 12/24/16 09:05 Respiratory Rate 18 12/24/16 09:05 Blood Pressure 119/58 12/24/16 09:05 O2 Sat by Pulse Oximetry (%) 98 12/24/16 06:04 Neck: Yes: WNL, Supple Cardiovascular: Yes: S1, S2 Respiratory: Yes: WNL, Regular, CTA Bilaterally Gastrointestinal: Yes: WNL, Soft. No: Tenderness Edema: No Labs: INR, PTT INR 1.04 (0.82-1.09) 12/23/16 21:41 Problem List - Problems (1) UTI (urinary tract infection) Code(s): N39.0 - URINARY TRACT INFECTION, SITE NOT SPECIFIED (2) Acute prostatitis Code(s): N41.0 - ACUTE PROSTATITIS Assessment/Plan Laboratory Tests 12/23/16 12/23/16 21:41 21:41 Creat Clearance w eGFR 33.10 Ur Leukocyte Esterase Negative Assessment UTI fever ? acute prostatitis in this 71 year old male recently hospitalized Plan Cultures and treat with Zosyn 2.25grs q 6 H [place] MD
[2016-12-24] MEDS: PIPERACILLIN/TAZOB 2.25 GM 50 ML IVPB SCH ×2 (22:05→22:06)
[2016-12-25] MEDS: SODIUM CHLORIDE 1,000 ML IV SCH ×3 (01:30→14:08)
[2016-12-25] MEDS: PIPERACILLIN/TAZOB 2.25 GM 50 ML IVPB SCH ×4 (02:28→20:39)
--- NOTE | 2016-12-25 09:24 | CONS ---
DATE OF CONSULTATION: INFECTIOUS DISEASE CONSULTATION: HISTORY OF PRESENT ILLNESS: This is a 71-year-old male who was recently in [facility] whom I am asked to see for evaluation with a past medical history of gout who was admitted with chief complaints of fever and chills at home associated with frequent urination. He was apparently in the hospital recently and discharged on December 10, 2016. Currently, the patient is alert and in no acute distress. PAST MEDICAL HISTORY: Includes GERD, gout, esophagitis, hyperlipidemia. CURRENT MEDICATIONS: Include allopurinol and Arava. ALLERGIES: None known. SOCIAL HISTORY: [place] immigrant. Nonsmoker, no history of alcohol use. FAMILY HISTORY: Reviewed, noncontributory. REVIEW OF SYSTEMS: All systems reviewed and negative. PHYSICAL EXAMINATION: General: He was an alert male in no acute distress. Vital Signs: Temperature max 100.5, blood pressure 85/33, respirations 18, and pulse 63. Neck: Supple. Lungs: Clear to percussion and auscultation. Heart: S1, S2 regular rhythm. Abdomen: Soft nontender without organomegaly. Extremities: Without clubbing, cyanosis, or edema. LABORATORY DATA: The white count is 14.8, hemoglobin 13, platelets 233 with 74% polys, 3 bands, 17 lymphs, 5 monos, and 1 eosinophil. BUN of 33, creatinine of 2.0, and creatinine clearance of 33. Liver enzymes within normal limits. Urinalysis screening test is negative. Two sets of blood cultures obtained and no growth. Recent blood culture December 07, 2016, no growth. Chest x-ray shows no acute infiltrate. ASSESSMENT: A 71-year-old male recently hospitalized presents with fever and frequent urination. Findings seem most consistent with a diagnosis of acute urinary tract infection and possible acute prostatitis, in this 71-year-old male. We will empirically teat him with Piperacilin and tazobactam adjusted for creatinine clearance. He has had a renal sonogram done the results are currently pending. We will await blood cultures and urine cultures to be ordered. VIKTORIA SOLORZANO M.D. [id number]
[2016-12-25] MEDS: LEFLUNOMIDE 10 MG TABLET PO SCH (09:47)
[2016-12-25] MEDS: HYDROXYCHLOROQUINE SO4 200 MG TABLET (FP) PO SCH (09:48)
[2016-12-25] MEDS: ALLOPURINOL 100 MG TABLET (FP) PO SCH (09:48)
[2016-12-25 11:44] LABS: ALBUMIN 2.8 g/dl (3.4-5.0); ANION GAP 6 (8-16); CALCIUM 7.9 mg/dL (8.5-10.1); CO2 23 mmol/L (21-32); GLUCOSE,RANDOM 97 mg/dL (74-106)
[2016-12-25 11:49] LABS: ALK PHOS 48 U/L (45-117); BILIRUBIN,TOTAL 0.7 mg/dL (0.2-1.0); CREATININE 1.6 mg/dL (0.7-1.3); SGOT/AST 10 U/L (15-37); SGPT/ALT 15 U/L (12-78); TOT PROT 5.4 g/dl (6.4-8.2)
[2016-12-25 11:53] LABS: BASOPHIL 1.5 % (0-2.0); EOSINOPHIL 1.1 % (0-4.5); MCH 29.2 pg (25.7-33.7); MCHC 32.6 g/dl (32.0-35.9); MEAN CELL VOLUME 89.7 fl (80-96); MEAN PLT VOLUME 7.2 fl (7.5-11.1); NEUTROPHILS 73.2 % (42.8-82.8); PLATELET COUNT 153 K/MM3 (134-434); RDW 15.9 % (11.9-15.9); WHITE BLOOD COUNT 8.1 K/mm3 (4.0-10.0)
--- NOTE | 2016-12-25 15:20 | PN ---
Progress Note, Physician Chief Complaint: ID Temp x 2 days really not sure why ?? NAD - Current Medication List Current Medications: Active Medications Allopurinol (Zyloprim -) 100 mg PO DAILY [facility] Last Admin: 12/25/16 09:48 Dose: 100 mg Hydroxychloroquine Sulfate (Plaquenil -) 200 mg PO DAILY [facility] Last Admin: 12/25/16 09:48 Dose: 200 mg Sodium Chloride (Normal Saline -) 1,000 mls @ 100 mls/hr IV ASDIR [facility] Last Admin: 12/25/16 14:08 Dose: 100 mls/hr Piperacillin/Tazobactam/Dextrose (Zosyn 2.25gm Ivpb (Premix)) 50 mls @ 100 mls/ hr IVPB Q6H-IV ANAIS PRN Reason: Protocol Last Admin: 12/25/16 14:08 Dose: 100 mls/hr Leflunomide (Arava -) 20 mg PO DAILY [facility] Last Admin: 12/25/16 09:47 Dose: 20 mg Non-Formulary Medication (Omeprazole [Omeprazole]) 10 mg PO DAILY [facility] Sulfasalazine (Azulfidine En-Tabs -) 500 mg PO DAILY [facility] Last Admin: 12/25/16 09:47 Dose: 500 mg - Objective Vital Signs: Vital Signs Temperature 100.7 F H 12/25/16 08:52 Pulse Rate 84 12/25/16 08:52 Respiratory Rate 18 12/25/16 08:52 Blood Pressure 116/61 12/25/16 08:52 O2 Sat by Pulse Oximetry (%) 98 12/25/16 09:00 Constitutional: Yes: Well Nourished, No Distress Eyes: Yes: WNL, Conjunctiva Clear HENT: Yes: WNL, Atraumatic Neck: Yes: WNL, Supple Cardiovascular: Yes: Regular Rate and Rhythm, S1, S2. No: Murmur Respiratory: Yes: WNL, Regular, CTA Bilaterally Gastrointestinal: Yes: WNL, Normal Bowel Sounds, Soft. No: Tenderness, Tenderness, Epigastrium Edema: No Labs: CBC, BMP 12/25/16 11:10 12/25/16 11:10 INR, PTT INR 1.04 (0.82-1.09) 12/23/16 21:41 Problem List - Problems (1) UTI (urinary tract infection) Code(s): N39.0 - URINARY TRACT INFECTION, SITE NOT SPECIFIED (2) Acute prostatitis Code(s): N41.0 - ACUTE PROSTATITIS (3) Fever Code(s): R50.9 - FEVER, UNSPECIFIED Assessment/Plan Laboratory Tests 12/25/16 12/25/16 12/25/16 11:10 11:10 11:10 WBC 8.1 D RBC 3.91 L Hgb 11.4 L D Plt Count 153 D ESR 60 H BUN 19 H D Creatinine 1.6 H Creat Clearance w eGFR 42.82 AST 10 L ALT 15 D Alkaline Phosphatase 48 D Assessment Fever unknown etiology Initially thought to have UIT but now thinking he may have drug reaction to sulfadiazine Apparently diagnosed with Rheumatoid arthritis in [place] and teated recently with Sulfadiazone and Luflonimide Plan IF fever continues would stop RA drugs for sure Obtain CRP RA FIONA Rheumatology evaluation IF fever persists stop antibiotics then FUO evaluation Discussed with Dr Hansel Mc MD
--- NOTE | 2016-12-25 17:52 | PN ---
Progress Note (short form) - Note Progress Note: pt seen/ examined feels same weak having fever i/d f/u noted- discussed with Dr. Wood Vital Signs Temp 99.6 F 12/25/16 15:56 Pulse 79 12/25/16 15:56 Resp 18 12/25/16 15:56 BP 123/62 12/25/16 15:56 Pulse Ox 98 12/25/16 09:00 Intake & Output 12/24/16 12/25/16 12/25/16 23:59 11:59 23:59 Intake Total 650 1200 860 Output Total 400 1350 700 Balance 250 -150 160 Intake: IV 1100 Normal Saline - 1,000 ml 1100 @ 100 mls/hr IV ASDIR ANAIS Rx#:[id number] IVPB 50 100 Oral 600 860 Output: Urine 400 1350 700 Void 400 1350 700 Other: Voiding Method Urinal Urinal # Unmeasured Voids Void 2 1 1 Bowel Movement No Yes Yes # Bowel Movements 1 Active Medications Acetaminophen (Tylenol -) 650 mg PO Q6H PRN PRN Reason: FEVER OR PAIN Allopurinol (Zyloprim -) 100 mg PO DAILY [facility] Last Admin: 12/25/16 09:48 Dose: 100 mg Hydroxychloroquine Sulfate (Plaquenil -) 200 mg PO DAILY [facility] Last Admin: 12/25/16 09:48 Dose: 200 mg Sodium Chloride (Normal Saline -) 1,000 mls @ 100 mls/hr IV ASDIR [facility] Last Admin: 12/25/16 14:08 Dose: 100 mls/hr Piperacillin/Tazobactam/Dextrose (Zosyn 2.25gm Ivpb (Premix)) 50 mls @ 100 mls/ hr IVPB Q6H-IV ANAIS PRN Reason: Protocol Last Admin: 12/25/16 14:08 Dose: 100 mls/hr Leflunomide (Arava -) 20 mg PO DAILY [facility] Last Admin: 12/25/16 09:47 Dose: 20 mg Pantoprazole Sodium (Protonix -) 20 mg PO DAILY [facility] Sulfasalazine (Azulfidine En-Tabs -) 500 mg PO DAILY [facility] Last Admin: 12/25/16 09:47 Dose: 500 mg CBC, BMP 12/25/16 11:10 12/25/16 11:10 Physical Examination Constitutional: Yes: No Distress, Calm/ comfortable Cardiovascular: Yes: Regular Rate and Rhythm Respiratory: Yes: CTA Bilaterally Gastrointestinal: Yes: Normal Bowel Sounds, Soft, Tenderness (suprapubic). No: Distention Edema: No Psychiatric: Yes: Alert, Oriented Problem List - Problems (1) Acute prostatitis Code(s): N41.0 - ACUTE PROSTATITIS (2) Sepsis Code(s): A41.9 - SEPSIS, UNSPECIFIED ORGANISM (3) UTI (urinary tract infection) Code(s): N39.0 - URINARY TRACT INFECTION, SITE NOT SPECIFIED (4) LAURA (acute kidney injury) Code(s): N17.9 - ACUTE KIDNEY FAILURE, UNSPECIFIED Assessment/Plan Agree with Dr. oWod continue abx today- d/c in amif cultures -ve rheumatology work up- consult requested fluids monitor labs will follow discussed with pt/ pts son. will consider d/c RA meds in am.
[2016-12-25] MEDS: ACETAMINOPHEN 325 MG TABLET (FP) PO PRN (20:38)
[2016-12-26] MEDS: SODIUM CHLORIDE 1,000 ML IV SCH ×3 (01:03→13:58)
[2016-12-26] MEDS: PIPERACILLIN/TAZOB 2.25 GM 50 ML IVPB SCH ×2 (02:03→09:41)
--- NOTE | 2016-12-26 09:08 | PN ---
Progress Note, Physician Chief Complaint: ID T Max 101 but again looks comfortable no complaint Still on antibiotic - Current Medication List Current Medications: Active Medications Acetaminophen (Tylenol -) 650 mg PO Q6H PRN PRN Reason: FEVER OR PAIN Last Admin: 12/25/16 20:38 Dose: 650 mg Allopurinol (Zyloprim -) 100 mg PO DAILY [facility] Last Admin: 12/25/16 09:48 Dose: 100 mg Hydroxychloroquine Sulfate (Plaquenil -) 200 mg PO DAILY [facility] Last Admin: 12/25/16 09:48 Dose: 200 mg Sodium Chloride (Normal Saline -) 1,000 mls @ 100 mls/hr IV ASDIR ANAIS Last Admin: 12/26/16 01:03 Dose: 100 mls/hr Piperacillin/Tazobactam/Dextrose (Zosyn 2.25gm Ivpb (Premix)) 50 mls @ 100 mls/ hr IVPB Q6H-IV ANAIS PRN Reason: Protocol Last Admin: 12/26/16 02:03 Dose: 100 mls/hr Leflunomide (Arava -) 20 mg PO DAILY [facility] Last Admin: 12/25/16 09:47 Dose: 20 mg Pantoprazole Sodium (Protonix -) 20 mg PO DAILY [facility] Sulfasalazine (Azulfidine En-Tabs -) 500 mg PO DAILY [facility] Last Admin: 12/25/16 09:47 Dose: 500 mg - Objective Vital Signs: Vital Signs Temperature 98.1 F 12/26/16 06:00 Pulse Rate 78 12/26/16 06:00 Respiratory Rate 18 12/26/16 06:00 Blood Pressure 130/58 12/26/16 06:00 O2 Sat by Pulse Oximetry (%) 98 12/25/16 09:00 Constitutional: Yes: No Distress Eyes: Yes: WNL, Conjunctiva Clear HENT: Yes: WNL, Atraumatic Neck: Yes: WNL, Supple Cardiovascular: Yes: Regular Rate and Rhythm, S1, S2. No: Murmur Respiratory: Yes: WNL, Regular, CTA Bilaterally Gastrointestinal: Yes: WNL, Normal Bowel Sounds, Soft. No: Tenderness, Tenderness, Epigastrium Edema: No Integumentary: Yes: Rash Labs: CBC, BMP 12/25/16 11:10 12/25/16 11:10 INR, PTT INR 1.04 (0.82-1.09) 12/23/16 21:41 Problem List - Problems (1) UTI (urinary tract infection) Code(s): N39.0 - URINARY TRACT INFECTION, SITE NOT SPECIFIED (2) Acute prostatitis Code(s): N41.0 - ACUTE PROSTATITIS (3) Fever Code(s): R50.9 - FEVER, UNSPECIFIED Assessment/Plan Microbiology 12/24/16 15:50 Urine - Urine Clean Catch Urine Culture - Final 12/23/16 23:20 Nasopharyngeal Swab Influenza Types A,B Antigen (MARY CARMEN) - Final 12/23/16 23:20 Nasopharyngeal Swab - Final 12/23/16 21:41 Blood - Peripheral Venous Blood Culture - Preliminary NO GROWTH OBTAINED AFTER 48 HOURS, INCUBATION TO CONTINUE FOR 3 DAYS. 12/23/16 21:41 Blood - Peripheral Venous Blood Culture - Preliminary NO GROWTH OBTAINED AFTER 48 HOURS, INCUBATION TO CONTINUE FOR 3 DAYS. Laboratory Tests 12/23/16 12/25/16 12/25/16 21:41 11:10 11:10 WBC 8.1 D Hgb 11.4 L D Hct 35.0 L Plt Count 153 D Neutrophils % 73.2 Lymphocytes % 11.3 D Eosinophils % 1.1 D Basophils % 1.5 D ESR BUN 33 H D 19 H D Creatinine 2.0 H 1.6 H Creat Clearance w eGFR 42.82 AST 10 L Alkaline Phosphatase 48 D 12/25/16 11:10 WBC Hgb Hct Plt Count Neutrophils % Lymphocytes % Eosinophils % Basophils % ESR 60 H BUN Creatinine Creat Clearance w eGFR AST Alkaline Phosphatase Assessment Fever and thrombocytopenia ? interstitial nephritis negative cultures I suspect reaction to Asulfidine Plan Would stop antibiotic along with all "RA " meds pending [facility] Consider renal evaluation for drug reaction nephritis Jesusita AMIN
[2016-12-26] MEDS ORDERED: PT OWN MED DRAWER 7, Y5N ONE (09:39)
[2016-12-26] MEDS: PANTOPRAZOLE 20 MG TABLET (FP) PO SCH (09:42)
[2016-12-26] MEDS: ALLOPURINOL 100 MG TABLET (FP) PO SCH (09:42)
[2016-12-26] MEDS: HYDROXYCHLOROQUINE SO4 200 MG TABLET (FP) PO SCH (09:44)
[2016-12-26] MEDS: LEFLUNOMIDE 10 MG TABLET PO SCH (09:45)
--- NOTE | 2016-12-26 13:34 | PN ---
Progress Note (short form) - Note Progress Note: pt feels better but complains of both knee pains/ left ankle pain. continue to have fever abx d/c ed Vital Signs Temp 98.6 F 12/26/16 09:22 Pulse 76 12/26/16 09:22 Resp 18 12/26/16 09:22 BP 119/79 12/26/16 09:22 Pulse Ox 99 12/26/16 09:51 Intake & Output 12/25/16 12/26/16 12/26/16 23:59 11:59 23:59 Intake Total 2410 1200 480 Output Total 1300 1400 300 Balance 1110 -200 180 Intake: IV 1000 1100 Normal Saline - 1,000 ml 1000 1100 @ 100 mls/hr IV ASDIR [facility] Rx#:[id number] IVPB 100 100 Oral 1310 480 Output: Urine 1300 1400 300 Void 1300 1400 300 Other: Voiding Method Urinal Toilet Toilet # Unmeasured Voids Void 1 3 2 Bowel Movement Yes No No # Bowel Movements 2 Active Medications Acetaminophen (Tylenol -) 650 mg PO Q6H PRN PRN Reason: FEVER OR PAIN Last Admin: 12/25/16 20:38 Dose: 650 mg Allopurinol (Zyloprim -) 100 mg PO DAILY [facility] Last Admin: 12/26/16 09:42 Dose: 100 mg Sodium Chloride (Normal Saline -) 1,000 mls @ 100 mls/hr IV ASDIR [facility] Last Admin: 12/26/16 09:41 Dose: Not Given Pantoprazole Sodium (Protonix -) 20 mg PO DAILY [facility] Last Admin: 12/26/16 09:42 Dose: 20 mg CBC, BMP 12/25/16 11:10 12/25/16 11:10 Microbiology 12/24/16 15:50 Urine Culture - Final Urine - Urine Clean Catch 12/23/16 21:41 Blood Culture - Preliminary Blood - Peripheral Venous NO GROWTH OBTAINED AFTER 48 HOURS, INCUBATION TO CONTINUE FOR 3 DAYS. 12/23/16 21:41 Blood Culture - Preliminary Blood - Peripheral Venous NO GROWTH OBTAINED AFTER 48 HOURS, INCUBATION TO CONTINUE FOR 3 DAYS. Physical Examination Constitutional: Yes: No Distress, Calm/ comfortable Cardiovascular: Yes: Regular Rate and Rhythm Respiratory: Yes: CTA Bilaterally Gastrointestinal: Yes: Normal Bowel Sounds, Soft, Tenderness (suprapubic). No: Distention Edema: No Psychiatric: Yes: Alert, Oriented knees/ left ankle mild swelling warmth + Problem List - Problems (1) Acute prostatitis Code(s): N41.0 - ACUTE PROSTATITIS (2) Sepsis Code(s): A41.9 - SEPSIS, UNSPECIFIED ORGANISM (3) UTI (urinary tract infection) Code(s): N39.0 - URINARY TRACT INFECTION, SITE NOT SPECIFIED (4) LAURA (acute kidney injury) Code(s): N17.9 - ACUTE KIDNEY FAILURE, UNSPECIFIED Assessment/Plan better continue present care pain due to gout possibly start on colchicine get x rays of knees d/c RA Meds renal consult will follow discussed with pt/ family. will follow
[2016-12-26] MEDS: ACETAMINOPHEN 325 MG TABLET (FP) PO PRN (13:57)
[2016-12-26] MEDS: PATIENT'S OWN MEDICATION (NON-FORMULARY) (Omeprazole [Omeprazole] 10 MG) PO SCH (13:59)
--- NOTE | 2016-12-26 15:54 | CONSULT ---
Consult Consult Specialty:: Nephrology Reason for Consultation:: LAURA - History of Present Illness Chief Complaint: brought in initially for weakness History of Present Illness: Pt is a 71 year old male with pmhx of HTN, gout and GERD who was brought to the ER initially for weakness. He had elevated creatinine on admission. I was called to evaluate pt for LAURA. He denies history of CKD however he has abnormal creatinine values from previous labs in the system. He complains of fevers. He says he had a cough. - Past Medical History Cardio/Vascular: Yes: HTN, Hyperlipdemia Gastrointestinal: Yes: GERD, Other (Esophagitis) Renal/: Yes: Renal Inusuff Rheumatology: Yes: Gout - Alcohol/Substance Use Hx Alcohol Use: No - Smoking History Smoking history: Never smoked Have you smoked in the past 12 months: No Aproximately how many cigarettes per day: 0 Home Medications - Allergies Allergies/Adverse Reactions: Allergies Allergy/AdvReac Type Severity Reaction Status Date / Time No Known Allergies Allergy Verified 12/23/16 20:39 - Home Medications Home Medications: Ambulatory Orders Allopurinol [Zyloprim -] 100 mg PO DAILY 10/26/13 Gabapentin 100 mg PO BID 10/26/13 Prednisone 10 mg PO DAILY #40 tablet 12/10/16 Calcium Carbonate - 600 mg PO DAILY 12/23/16 Colchicine 0.6 mg PO ASDIR 12/23/16 Enalapril Maleate [Vasotec -] 10 mg PO DAILY 12/23/16 Hydroxychloroquine Sulfate 200 mg PO DAILY 12/23/16 Leflunomide 20 mg PO DAILY 12/23/16 Omeprazole 20 mg PO DAILY 12/23/16 Sulfasalazine 500 mg PO DAILY 12/23/16 Family Disease History - Family Disease History Family History: Denies Review of Systems - Review of Systems Constitutional: reports: Fever, Malaise Eyes: reports: No Symptoms HENT: reports: No Symptoms Neck: reports: No Symptoms Cardiovascular: denies: Edema Respiratory: reports: Cough, SOB, SOB on Exertion Gastrointestinal: reports: No Symptoms Genitourinary: reports: No Symptoms Musculoskeletal: reports: Joint Pain, Joint Swelling Neurological: reports: No Symptoms Endocrine: reports: No Symptoms Physical Exam Vital Signs: Vital Signs Temperature 100.1 F H 12/26/16 15:27 Pulse Rate 86 12/26/16 15:27 Respiratory Rate 20 12/26/16 15:27 Blood Pressure 123/72 12/26/16 15:27 O2 Sat by Pulse Oximetry (%) 99 12/26/16 09:51 Constitutional: Yes: Calm, Mild Distress Eyes: Yes: Conjunctiva Clear HENT: Yes: Atraumatic Neck: Yes: Supple Cardiovascular: Yes: S1, S2 Respiratory: Yes: CTA Bilaterally Gastrointestinal: Yes: Soft Renal/: Yes: WNL Musculoskeletal: Yes: WNL Edema: No Neurological: Yes: Oriented Psychiatric: Yes: Oriented Labs: CBC, BMP 12/25/16 11:10 12/25/16 11:10 Laboratory Tests 09/06/13 10/26/13 09/23/15 10:01 13:14 10:50 WBC Hgb Sodium Potassium Chloride Carbon Dioxide Anion Gap BUN Creatinine 1.5 H 1.7 H 2.0 H Calcium Urine Color Urine Appearance Urine pH Ur Specific [place] Urine Protein Urine Glucose (UA) Urine Ketones Urine Blood Urine Nitrite Urine Bilirubin Urine Urobilinogen Ur Leukocyte Esterase Plasmodium species DNA 12/07/16 12/08/16 12/09/16 19:01 05:00 05:10 WBC Hgb Sodium Potassium Chloride Carbon Dioxide Anion Gap BUN Creatinine 2.0 H 1.9 H 1.6 H Calcium Urine Color Urine Appearance Urine pH Ur Specific [place] Urine Protein Urine Glucose (UA) Urine Ketones Urine Blood Urine Nitrite Urine Bilirubin Urine Urobilinogen Ur Leukocyte Esterase Plasmodium species DNA 12/10/16 12/23/16 12/23/16 06:30 21:41 21:41 WBC 14.8 H Hgb 13.0 D Sodium Potassium Chloride Carbon Dioxide Anion Gap BUN Creatinine 1.7 H Calcium Urine Color Dkyellow Urine Appearance Slcloudy Urine pH 5.0 Ur Specific [place] 1.025 Urine Protein Negative Urine Glucose (UA) Negative Urine Ketones Negative Urine Blood Negative Urine Nitrite Negative Urine Bilirubin Negative Urine Urobilinogen Negative Ur Leukocyte Esterase Negative Plasmodium species DNA 12/23/16 12/25/16 12/25/16 21:41 11:10 11:10 WBC Hgb 11.4 L D Sodium 138 139 Potassium 5.0 4.9 Chloride 107 110 H Carbon Dioxide 21 23 Anion Gap 10 6 L BUN 33 H D 19 H D Creatinine 2.0 H 1.6 H Calcium 8.0 L 7.9 L Urine Color Urine Appearance Urine pH Ur Specific [place] Urine Protein Urine Glucose (UA) Urine Ketones Urine Blood Urine Nitrite Urine Bilirubin Urine Urobilinogen Ur Leukocyte Esterase Plasmodium species DNA 12/25/16 18:30 WBC Hgb Sodium Potassium Chloride Carbon Dioxide Anion Gap BUN Creatinine Calcium Urine Color Urine Appearance Urine pH Ur Specific [place] Urine Protein Urine Glucose (UA) Urine Ketones Urine Blood Urine Nitrite Urine Bilirubin Urine Urobilinogen Ur Leukocyte Esterase Plasmodium species DNA Pending Imaging - Results Chest X-ray: Report Reviewed Ultrasound: Report Reviewed (bilateral renal cysts) Problem List - Problems (1) Fever Code(s): R50.9 - FEVER, UNSPECIFIED (2) Gout Code(s): M10.9 - GOUT, UNSPECIFIED (3) CKD (chronic kidney disease) Code(s): N18.9 - CHRONIC KIDNEY DISEASE, UNSPECIFIED Assessment/Plan Current Medications Generic Name Dose Route Start Last Admin Trade Name Freq PRN Reason Stop Dose Admin Acetaminophen 650 mg 12/25/16 17:51 12/26/16 13:57 Tylenol - PO 650 mg Q6H PRN Administration FEVER OR PAIN Allopurinol 100 mg 12/24/16 10:00 12/26/16 09:42 Zyloprim - PO 100 mg DAILY ANAIS Administration Colchicine 0.6 mg 12/26/16 14:30 Colcrys - PO DAILY ANAIS Sodium Chloride 1,000 mls @ 100 mls/hr 12/24/16 07:00 12/26/16 13:58 Normal Saline - IV 100 mls/hr ASDIR ANAIS Administration Pantoprazole Sodium 20 mg 12/26/16 10:00 12/26/16 09:42 Protonix - PO 20 mg DAILY ANAIS Administration Laboratory Tests 10/12/12 10/20/12 12/23/16 20:36 11:50 21:41 Creatinine 1.6 H 1.5 H 2.0 H 12/25/16 11:10 Creatinine 1.6 H Impression 1. CKD 2. fevers 3. HTN 4. gout 5. renal cysts Plan - pts creatinine has been 1.6 since 2012 - ua is negative for blood or protein, will repeat - can check crp and rf - consider rheumatology eval - pt will need renal workup and ckd maintenance - will follow Dr Lee
[2016-12-26] MEDS: COLCHICINE 0.6 MG TABLET (FP) PO SCH (16:19)
[2016-12-26 17:55] LABS: C-REACTIVE PROTEIN 9.7 MG/DL (0.00-0.3)
[2016-12-26 19:39] LABS: URINE APPEARANCE CLEAR; URINE BILIRUBIN NEGATIVE (NEGATIVE); URINE BLOOD NEGATIVE (NEGATIVE); URINE COLOR STRAW; URINE GLUCOSE (UA) NEGATIVE (NEGATIVE); URINE KETONE NEGATIVE (NEGATIVE); URINE NITRITE NEGATIVE (NEGATIVE); URINE PROTEIN NEGATIVE (NEGATIVE); URINE UROBILINOGEN NEGATIVE mg/dL (0.2-1.0)
[2016-12-26 23:01] LABS: URINE LEUK ESTERASE Negative (NEGATIVE)
[2016-12-27 08:30] LABS: BASOPHIL 2.2 % (0-2.0); EOSINOPHIL 2.7 % (0-4.5); MCH 28.7 pg (25.7-33.7); MCHC 32.3 g/dl (32.0-35.9); MEAN CELL VOLUME 88.9 fl (80-96); MEAN PLT VOLUME 7.5 fl (7.5-11.1); NEUTROPHILS 57.7 % (42.8-82.8); PLATELET COUNT 180 K/MM3 (134-434); WHITE BLOOD COUNT 6.7 K/mm3 (4.0-10.0)
[2016-12-27 09:01] LABS: ALBUMIN 3.1 g/dl (3.4-5.0); ANION GAP 8 (8-16); CALCIUM 8.5 mg/dL (8.5-10.1); CO2 23 mmol/L (21-32); CREATININE 1.4 mg/dL (0.7-1.3); GLUCOSE,RANDOM 80 mg/dL (74-106); SGOT/AST 11 U/L (15-37); SGPT/ALT 17 U/L (12-78); URIC ACID 4.5 mg/dL (2.6-7.2)
[2016-12-27 09:04] LABS: ALK PHOS 54 U/L (45-117); BILIRUBIN,TOTAL 0.8 mg/dL (0.2-1.0); TOT PROT 6.4 g/dl (6.4-8.2)
[2016-12-27] MEDS: ALLOPURINOL 100 MG TABLET (FP) PO SCH (09:47)
[2016-12-27] MEDS: PANTOPRAZOLE 20 MG TABLET (FP) PO SCH (09:47)
[2016-12-27] MEDS: SODIUM CHLORIDE 1,000 ML IV SCH ×3 (09:47→23:53)
[2016-12-27] MEDS: COLCHICINE 0.6 MG TABLET (FP) PO SCH (09:48)
--- NOTE | 2016-12-27 12:45 | PN ---
Progress Note (short form) - Note Progress Note: feels much better off abx/ RA meds afebrile cr better says pain in ankles / knee much better Vital Signs Temp 98.1 F 12/27/16 09:00 Pulse 85 12/27/16 09:00 Resp 18 12/27/16 09:00 BP 120/79 12/27/16 09:00 Pulse Ox 99 12/27/16 09:00 Intake & Output 12/26/16 12/27/16 12/27/16 23:59 11:59 23:59 Intake Total 2650 1600 230 Output Total 900 1200 Balance 1750 400 230 Intake: IV 1100 1200 Normal Saline - 1,000 ml 1100 1200 @ 100 mls/hr IV ASDIR [facility] Rx#:[id number] Oral 1550 400 230 Output: Urine 900 1200 Void 900 1200 Other: Voiding Method Urinal Urinal # Unmeasured Voids Void 2 Bowel Movement Yes No # Bowel Movements 1 Active Medications Acetaminophen (Tylenol -) 650 mg PO Q6H PRN PRN Reason: FEVER OR PAIN Last Admin: 12/26/16 13:57 Dose: 650 mg Allopurinol (Zyloprim -) 100 mg PO DAILY [facility] Last Admin: 12/27/16 09:47 Dose: 100 mg Colchicine (Colcrys -) 0.6 mg PO DAILY [facility] Last Admin: 12/27/16 09:48 Dose: 0.6 mg Sodium Chloride (Normal Saline -) 1,000 mls @ 100 mls/hr IV ASDIR [facility] Last Admin: 12/27/16 09:47 Dose: 100 mls/hr Pantoprazole Sodium (Protonix -) 20 mg PO DAILY [facility] Last Admin: 12/27/16 09:47 Dose: 20 mg CBC, BMP 12/27/16 07:40 12/27/16 07:40 Rheumatological work - pending. Physical Examination Constitutional: Yes: No Distress, Calm/ comfortable Cardiovascular: Yes: Regular Rate and Rhythm Respiratory: Yes: CTA Bilaterally Gastrointestinal: Yes: Normal Bowel Sounds, Soft, Tenderness (suprapubic). No: Distention Edema: No Psychiatric: Yes: Alert, Oriented Problem List - Problems (1) Acute prostatitis Code(s): N41.0 - ACUTE PROSTATITIS (2) Sepsis Code(s): A41.9 - SEPSIS, UNSPECIFIED ORGANISM (3) UTI (urinary tract infection) Code(s): N39.0 - URINARY TRACT INFECTION, SITE NOT SPECIFIED (4) LAURA (acute kidney injury) Code(s): N17.9 - ACUTE KIDNEY FAILURE, UNSPECIFIED Assessment/Plan better continue present care renal consult noted/ appreciated f/u labs x rays reviewed/ discussed if better- will d/c in am decrease fluids will follow discussed again with family.
--- NOTE | 2016-12-27 17:12 | PN ---
Progress Note, Physician History of Present Illness: Pt seen and examined at bedside. He is awake and alert. He appears more comfortable today. - Current Medication List Current Medications: Active Medications Acetaminophen (Tylenol -) 650 mg PO Q6H PRN PRN Reason: FEVER OR PAIN Last Admin: 12/26/16 13:57 Dose: 650 mg Allopurinol (Zyloprim -) 100 mg PO DAILY [facility] Last Admin: 12/27/16 09:47 Dose: 100 mg Colchicine (Colcrys -) 0.6 mg PO DAILY [facility] Last Admin: 12/27/16 09:48 Dose: 0.6 mg Sodium Chloride (Normal Saline -) 1,000 mls @ 100 mls/hr IV ASDIR [facility] Last Admin: 12/27/16 09:47 Dose: 100 mls/hr Pantoprazole Sodium (Protonix -) 20 mg PO DAILY [facility] Last Admin: 12/27/16 09:47 Dose: 20 mg - Objective Vital Signs: Vital Signs Temperature 98.7 F 12/27/16 15:08 Pulse Rate 78 12/27/16 15:08 Respiratory Rate 20 12/27/16 15:08 Blood Pressure 116/56 12/27/16 15:08 O2 Sat by Pulse Oximetry (%) 99 12/27/16 09:00 Constitutional: Yes: Calm Eyes: Yes: Conjunctiva Clear HENT: Yes: Atraumatic Neck: Yes: Supple Cardiovascular: Yes: S1, S2 Respiratory: Yes: CTA Bilaterally Gastrointestinal: Yes: Normal Bowel Sounds, Soft Genitourinary: Yes: WNL Edema: No Neurological: Yes: Oriented Psychiatric: Yes: Oriented Labs: CBC, BMP 12/27/16 07:40 12/27/16 07:40 INR, PTT INR 1.04 (0.82-1.09) 12/23/16 21:41 Problem List - Problems (1) Fever Code(s): R50.9 - FEVER, UNSPECIFIED (2) Gout Code(s): M10.9 - GOUT, UNSPECIFIED (3) CKD (chronic kidney disease) Code(s): N18.9 - CHRONIC KIDNEY DISEASE, UNSPECIFIED Assessment/Plan Current Medications Generic Name Dose Route Start Last Admin Trade Name Freq PRN Reason Stop Dose Admin Acetaminophen 650 mg 12/25/16 17:51 12/26/16 13:57 Tylenol - PO 650 mg Q6H PRN Administration FEVER OR PAIN Allopurinol 100 mg 12/24/16 10:00 12/27/16 09:47 Zyloprim - PO 100 mg DAILY ANAIS Administration Colchicine 0.6 mg 12/26/16 14:30 12/27/16 09:48 Colcrys - PO 0.6 mg DAILY ANAIS Administration Sodium Chloride 1,000 mls @ 100 mls/hr 12/24/16 07:00 12/27/16 09:47 Normal Saline - IV 100 mls/hr ASDIR [facility]NA[facility] Administration Pantoprazole Sodium 20 mg 12/26/16 10:00 12/27/16 09:47 Protonix - PO 20 mg DAILY ANAIS Administration Laboratory Tests 12/26/16 12/26/16 12/27/16 17:15 18:30 07:40 Urine Color Straw Urine Appearance Clear Urine pH 5.0 Ur Specific [place] 1.010 Urine Protein Negative Urine Glucose (UA) Negative Urine Ketones Negative Urine Blood Negative Urine Nitrite Negative Urine Bilirubin Negative Urine Urobilinogen Negative Ur Leukocyte Esterase Negative Rheumatoid Factor < 10.0 FIONA Screen Pending c-ANCA Pending Proteinase 3 (PR3) Pending p-ANCA Pending Atypical p-ANCA Pending Myeloperoxidase Ab Pending Double Strand DNA Ab Pending Impression 1. CKD 2. fevers 3. HTN 4. gout 5. renal cysts Plan - renal function stable - renal workup in progress - rheum eval is pending - cont fluids, will decrease rate - repeat labs in am - he will need outpt follow up - will follow Dr Lee
[2016-12-27 18:47] VITALS: TEMP 98.4
[2016-12-28 07:48] LABS: ANION GAP 7 (8-16); CO2 24 mmol/L (21-32); CREATININE 1.3 mg/dL (0.7-1.3); GLUCOSE,RANDOM 83 mg/dL (74-106)
[2016-12-28] MEDS: COLCHICINE 0.6 MG TABLET (FP) PO SCH (09:40)
[2016-12-28] MEDS: ALLOPURINOL 100 MG TABLET (FP) PO SCH (09:40)
[2016-12-28] MEDS: PANTOPRAZOLE 20 MG TABLET (FP) PO SCH (09:40)
--- NOTE | 2016-12-28 10:14 | PN ---
Progress Note, Physician Chief Complaint: ID Doing well NO complaints NO fever OFF all meds - Current Medication List Current Medications: Active Medications Acetaminophen (Tylenol -) 650 mg PO Q6H PRN PRN Reason: FEVER OR PAIN Last Admin: 12/26/16 13:57 Dose: 650 mg Allopurinol (Zyloprim -) 100 mg PO DAILY [facility] Last Admin: 12/28/16 09:40 Dose: 100 mg Colchicine (Colcrys -) 0.6 mg PO DAILY [facility] Last Admin: 12/28/16 09:40 Dose: 0.6 mg Sodium Chloride (Normal Saline -) 1,000 mls @ 75 mls/hr IV ASDIR [facility] Last Admin: 12/27/16 23:53 Dose: 75 mls/hr Pantoprazole Sodium (Protonix -) 20 mg PO DAILY [facility] Last Admin: 12/28/16 09:40 Dose: 20 mg - Objective Vital Signs: Vital Signs Temperature 98.4 F 12/28/16 06:00 Pulse Rate 78 12/28/16 06:00 Respiratory Rate 18 12/28/16 06:00 Blood Pressure 118/71 12/28/16 06:00 O2 Sat by Pulse Oximetry (%) 98 12/27/16 21:00 Constitutional: Yes: No Distress Eyes: Yes: WNL, Conjunctiva Clear HENT: Yes: WNL, Atraumatic Neck: Yes: WNL, Supple Cardiovascular: Yes: Regular Rate and Rhythm, S1, S2. No: Murmur Respiratory: Yes: WNL, Regular, CTA Bilaterally Gastrointestinal: Yes: WNL, Normal Bowel Sounds, Soft. No: Tenderness, Epigastrium Edema: No Labs: CBC, BMP 12/27/16 07:40 12/28/16 06:45 INR, PTT INR 1.04 (0.82-1.09) 12/23/16 21:41 Problem List - Problems (1) UTI (urinary tract infection) Code(s): N39.0 - URINARY TRACT INFECTION, SITE NOT SPECIFIED (2) Acute prostatitis Code(s): N41.0 - ACUTE PROSTATITIS (3) Fever Code(s): R50.9 - FEVER, UNSPECIFIED Assessment/Plan Microbiology 12/24/16 15:50 Urine - Urine Clean Catch Urine Culture - Final 12/23/16 23:20 Nasopharyngeal Swab Influenza Types A,B Antigen (MARY CARMEN) - Final 12/23/16 23:20 Nasopharyngeal Swab - Final 12/23/16 21:41 Blood - Peripheral Venous Blood Culture - Preliminary NO GROWTH OBTAINED AFTER 96 HOURS, INCUBATION TO CONTINUE FOR 1 DAYS. 12/23/16 21:41 Blood - Peripheral Venous Blood Culture - Preliminary NO GROWTH OBTAINED AFTER 96 HOURS, INCUBATION TO CONTINUE FOR 1 DAYS. Laboratory Tests 12/27/16 12/28/16 07:40 06:45 WBC 6.7 Plt Count 180 BUN 16 Creatinine 1.3 Assessment Drug reaction Asulfidine off meds Plan Rheumatology eval as outpt Will sign off for now Jesusita AMIN
[2016-12-28 11:06] VITALS: BP 119/67; PULSE 77
--- NOTE | 2016-12-28 12:22 | DS ---
Physical Examination Vital Signs: Vital Signs Temperature 98.4 F 12/28/16 09:00 Pulse Rate 77 12/28/16 09:00 Respiratory Rate 18 12/28/16 09:00 Blood Pressure 119/67 12/28/16 09:00 O2 Sat by Pulse Oximetry (%) 98 12/27/16 21:00 Findings/Remarks: feels well no complains says much better Constitutional: Yes: No Distress, Calm Eyes: Yes: Conjunctiva Clear Neck: Yes: Supple Cardiovascular: Yes: Regular Rate and Rhythm Respiratory: Yes: CTA Bilaterally Gastrointestinal: Yes: Normal Bowel Sounds, Soft Edema: No Neurological: Yes: Alert Psychiatric: Yes: Alert Labs: CBC, BMP 12/27/16 07:40 12/28/16 06:45 Discharge Summary Reason For Visit: SEPSIS Current Active Problems Acute prostatitis (Acute) CKD (chronic kidney disease) (Acute) Fever (Acute) Sepsis (Acute) UTI (urinary tract infection) (Acute) Hospital Course: admitted for fever work up -ve treated emperically with abx it is suspected - sulfasalazine causing fever RA meds stopped for now pt strongly advised to follow with product applications engineer as out pt meds reconcilled will d/c today pt in agreement Condition: Stable - Instructions Diet, Activity, Other Instructions: f/u office in one week Referrals: Iva Hamm MD [Primary Care Provider] - Disposition: HOME - Home Medications Comprehensive Discharge Medication List: Ambulatory Orders Allopurinol [Zyloprim -] 100 mg PO DAILY 10/26/13 Gabapentin 100 mg PO BID 10/26/13 Colchicine 0.6 mg PO ASDIR 12/23/16 Omeprazole 20 mg PO DAILY 12/23/16
--- NOTE | 2016-12-28 13:50 | PN ---
Progress Note, Physician History of Present Illness: Pt seen and examined at bedside. He is awake and alert. He says he feels better. - Objective Vital Signs: Vital Signs Temperature 98.4 F 12/28/16 09:00 Pulse Rate 77 12/28/16 09:00 Respiratory Rate 18 12/28/16 09:00 Blood Pressure 119/67 12/28/16 09:00 O2 Sat by Pulse Oximetry (%) 98 12/27/16 21:00 Constitutional: Yes: Calm Eyes: Yes: Conjunctiva Clear HENT: Yes: Atraumatic Neck: Yes: Supple Cardiovascular: Yes: S1, S2 Respiratory: Yes: CTA Bilaterally Gastrointestinal: Yes: Normal Bowel Sounds, Soft Genitourinary: Yes: WNL Edema: No Neurological: Yes: Oriented Psychiatric: Yes: Oriented Labs: CBC, BMP 12/27/16 07:40 12/28/16 06:45 INR, PTT INR 1.04 (0.82-1.09) 12/23/16 21:41 Problem List - Problems (1) Fever Code(s): R50.9 - FEVER, UNSPECIFIED (2) Gout Code(s): M10.9 - GOUT, UNSPECIFIED (3) CKD (chronic kidney disease) Code(s): N18.9 - CHRONIC KIDNEY DISEASE, UNSPECIFIED Assessment/Plan Laboratory Tests 12/26/16 12/27/16 12/28/16 17:15 07:40 06:45 Creatinine 1.3 Rheumatoid Factor < 10.0 FIONA Screen Pending c-ANCA Pending Proteinase 3 (PR3) Pending p-ANCA Pending Atypical p-ANCA Pending Myeloperoxidase Ab Pending Double Strand DNA Ab Pending Impression 1. CKD 2. fevers 3. HTN 4. gout 5. renal cysts Plan - creatinine is improved - his renal workup is pending - he will need to follow in office - pt should also see rheumatology - will follow Dr Lee
[2016-12-30 00:06] LABS: C-ANCA <1:20 titer (Neg:<1:20); MYELOPEROXIDASE ANTIBODY <9.0 U/mL (0.0-9.0); P-ANCA <1:20 titer (Neg:<1:20); PROTEINASE-3 ANTIBODY <3.5 U/mL (0.0-3.5)
== END 2016-12-28 13:32 | disposition home or self-care (01) | DRG 720 ==
LOC: JER 20:25 → JERBED 12-24 01:27 → UNDOADMIN 12-24 01:42 → J5S 12-24 18:14
PROVIDERS: ADMIT Internal Medicine; ATTEND Internal Medicine
DX: A41.9 Sepsis, unspecified organism (principal); R50.2 Drug induced fever; N17.9 Acute kidney failure, unspecified; N39.0 Urinary tract infection, site not specified; D69.6 Thrombocytopenia, unspecified; N28.1 Cyst of kidney, acquired; K21.9 Gastro-esophageal reflux disease without esophagitis; M10.9 Gout, unspecified; E78.5 Hyperlipidemia, unspecified; N41.0 Acute prostatitis; N18.9 Chronic kidney disease, unspecified; I12.9 Hypertensive chronic kidney disease with stage 1 through stage 4 chronic kidney disease, or unspecified chronic kidney disease; T37.0X5A Adverse effect of sulfonamides, initial encounter
CPT/HCPCS: 36415; 71010-TC; 73562-TC-LT; 73562-TC-RT; 76775-TC; 76856-TC; 80048; 80053; 81003; 82550; 82803; 83520; 83605; 84484; 84550; 85025; 85610; 85651; 85730; 86038; 86140; 86225; 86256; 86431; 86850; 86900; 86901; 87040; 87086; 87798; 87804; 93005; 93010; 99285-25